=== PATIENT | female | born 1965 | race Caucasian/White ===

== ENCOUNTER 2020-02-04 19:24 | Inpatient (IN) | payer OTHER ==
[2020-02-04] MEDS ORDERED: LORazepam 2 MG/ML INJ IV PRN (19:58)
[2020-02-04] MEDS ORDERED: THIAMINE 100 MG/ML 2 ML VIAL IM STA (19:58)
[2020-02-04] MEDS ORDERED: SODIUM CHLORIDE 0.9% 1,000 ML IV ONE (19:58)
[2020-02-04] MEDS: SODIUM CHLORIDE 0.9% 1,000 ML IV SCH (20:22)
--- NOTE | 2020-02-04 20:25 | ED ---
Alcohol HPI - General Chief Complaint: Alcohol Stated Complaint: ETOH Time Seen by Provider: 02/04/20 19:34 Source: patient, family Mode of arrival: wheelchair Limitations: no limitations - History of Present Illness Initial Comments: Patient is a 55 female past medical history of medical abuse presents emergency Department intoxicated with thoughts of harming herself. Her mother is at bedside. Patient states that she drinks heavily daily. Recently she has had significant depression with thoughts of jumping off a bridge. Patient reports to chronic depression and previous a has harmed herself by cutting her upper extremities. States she was hospitalized however this is a significant period of time ago. Patient is belligerent and rested with staff. I do attempt to obtain a history from the patient however she will only answer certain ques tions. She denies homicidal ideations. No psychoses. Patient reports that she has previously tried to detox from alcohol on her own and alcohol withdrawal seizures. She denies any other drug use. The remainder of the HPI is limited because the patient's current condition - Related Data Home Medications Medication Instructions Recorded Confirmed Multivitamins, Thera [Multivitamin 1 tab PO DAILY 02/05/20 02/05/20 (formulary)] Previous Rx's Medication Instructions Recorded Escitalopram [Lexapro] 10 mg PO DAILY #30 tab 02/06/20 Famotidine [Pepcid] 20 mg PO BID #30 tab 02/06/20 Naltrexone HCl [Revia] 50 mg PO DAILY #30 tab 02/06/20 Thiamine [Vitamin B-1] 100 mg PO BID-W/MEALS #30 tab 02/06/20 chlordiazePOXIDE HCl [Librium] 25 mg PO TID #12 cap 02/06/20 traZODone HCL [Desyrel] 25 mg PO HS #30 tab 02/06/20 Allergies Allergy/AdvReac Type Severity Reaction Status Date / Time amoxicillin Allergy Unknown Verified 02/05/20 12:44 bee venom protein (honey bee) Allergy Unknown Verified 02/05/20 12:44 Sulfa (Sulfonamide Allergy Unknown Verified 02/05/20 12:44 Antibiotics) Review of Systems ROS Statement: Those systems with pertinent positive or pertinent negative responses have been documented in the HPI. ROS Other: All systems not noted in ROS Statement are negative. Past Medical History Past Medical History: No Reported History History of Any Multi-Drug Resistant Organisms: None Reported Past Surgical History: No Surgical Hx Reported Past Psychological History: No Psychological Hx Reported Smoking Status: Never smoker Past Alcohol Use History: Abuse Past Drug Use History: None Reported - Past Family History Mother Family Medical History: No Reported History General Exam Limitations: no limitations General appearance: alert, appears intoxicated Head exam: Present: atraumatic, normocephalic, normal inspection Eye exam: Present: normal appearance, PERRL, EOMI. Absent: scleral icterus, conjunctival injection, periorbital swelling ENT exam: Present: normal exam, mucous membranes moist Neck exam: Present: normal inspection. Absent: tenderness, meningismus, lympha denopathy Respiratory exam: Present: normal lung sounds bilaterally. Absent: respiratory distress, wheezes, rales, rhonchi, stridor Cardiovascular Exam: Present: regular rate, normal rhythm, normal heart sounds. Absent: systolic murmur, diastolic murmur, rubs, gallop, clicks GI/Abdominal exam: Present: soft, normal bowel sounds. Absent: distended, tenderness, guarding, rebound, rigid Neurological exam: Present: altered Psychiatric exam: Present: agitated, manic Skin exam: Present: warm, dry, intact, normal color. Absent: rash Course Vital Signs 02/04/20 02/04/20 19:26 21:42 Temperature 98.3 F Pulse Rate 89 80 Respiratory 16 16 Rate Blood Pressure 144/99 105/68 O2 Sat by Pulse 94 L 93 L Oximetry Medical Decision Making - Medical Decision Making Upon arrival patient is placed in room 13. A thorough history and physical exam was performed. Patient is significantly intoxicated. She is crying in the room. A BAT is performed on the patient and is 0.365. This elevated level we did obtain lab studies which demonstrated a serum alcohol level of 484. Because of this I did recommend hospital admission with psychiatry consult. I discussed the case with Rosalia from [facility] agree to hospital admission. Patient is currently awaiting a bed on the floor - Lab Data Result diagrams: 02/05/20 07:13 02/06/20 07:02 Lab Results 02/04/20 02/04/20 02/04/20 Range/Units 19:59 20:20 20:20 WBC 4.4 (3.8-10.6) k/uL RBC 4.46 (3.80-5.40) m/uL Hgb 14.7 (11.4-16.0) gm/dL Hct 45.6 (34.0-46.0) % MCV 102.3 H (80.0-100.0) fL MCH 33.0 (25.0-35.0) pg MCHC 32.3 (31.0-37.0) g/dL RDW 14.4 (11.5-15.5) % Plt Count 223 (150-450) k/uL Neutrophils % 43 % Lymphocytes % 45 % Monocytes % 5 % Eosinophils % 2 % Basophils % 1 % Neutrophils # 1.9 (1.3-7.7) k/uL Lymphocytes # 2.0 (1.0-4.8) k/uL Monocytes # 0.2 (0-1.0) k/uL Eosinophils # 0.1 (0-0.7) k/uL Basophils # 0.1 (0-0.2) k/uL Macrocytosis Slight Sodium 145 (137-145) mmol/L Potassium 4.1 (3.5-5.1) mmol/L Chloride 106 (98-107) mmol/L Carbon Dioxide 24 (22-30) mmol/L Anion Gap 15 mmol/L BUN 16 (7-17) mg/dL Creatinine 0.63 (0.52-1.04) mg/dL Est GFR (CKD-EPI)AfAm >90 (>60 ml/min/1.73 sqM) Est GFR (CKD-EPI)NonAf >90 (>60 ml/min/1.73 sqM) Glucose 97 (74-99) mg/dL Calcium 9.2 (8.4-10.2) mg/dL Total Bilirubin 0.6 (0.2-1.3) mg/dL AST 108 H (14-36) U/L ALT 84 H (4-34) U/L Alkaline Phosphatase 147 H (38-126) U/L Total Protein 8.3 H (6.3-8.2) g/dL Albumin 5.2 H (3.5-5.0) g/dL Urine Color Yellow Urine Appearance Clear (Clear) Urine pH 6.0 (5.0-8.0) Ur Specific Daisy 1.014 (1.001-1.035) Urine Protein 1+ H (Negative) Urine Glucose (UA) Negative (Negative) Urine Ketones Negative (Negative) Urine Blood Trace H (Negative) Urine Nitrite Negative (Negative) Urine Bilirubin Negative (Negative) Urine Urobilinogen <2.0 (<2.0) mg/dL Ur Leukocyte Esterase Negative (Negative) Urine RBC 5 (0-5) /hpf Urine WBC 1 (0-5) /hpf Ur Squamous Epith Cells 4 (0-4) /hpf Urine Mucus Rare H (None) /hpf Urine Opiates Screen Not Detected (NotDetected) Ur Oxycodone Screen Not Detected (NotDetected) Urine Methadone Screen Not Detected (NotDetected) Ur Propoxyphene Screen Not Detected (NotDetected) Ur Barbiturates Screen Not Detected (NotDetected) U Tricyclic Antidepress Not Detected (NotDetected) Ur Phencyclidine Scrn Not Detected (NotDetected) Ur Amphetamines Screen Not Detected (NotDetected) U Methamphetamines Scrn Not Detected (NotDetected) U Benzodiazepines Scrn Not Detected (NotDetected) Urine Cocaine Screen Not Detected (NotDetected) U Marijuana (THC) Screen Not Detected (NotDetected) Serum Alcohol 484 H* mg/dL 02/05/20 02/05/20 02/06/20 Range/Units 07:13 07:13 07:02 WBC 3.0 L (3.8-10.6) k/uL RBC 3.51 L (3.80-5.40) m/uL Hgb 11.8 (11.4-16.0) gm/dL Hct 36.4 (34.0-46.0) % MCV 103.8 H (80.0-100.0) fL MCH 33.6 (25.0-35.0) pg MCHC 32.3 (31.0-37.0) g/dL RDW 14.3 (11.5-15.5) % Plt Count 153 (150-450) k/uL Neutrophils % 42 % Lymphocytes % 45 % Monocytes % 6 % Eosinophils % 4 % Basophils % 1 % Neutrophils # 1.3 (1.3-7.7) k/uL Lymphocytes # 1.3 (1.0-4.8) k/uL Monocytes # 0.2 (0-1.0) k/uL Eosinophils # 0.1 (0-0.7) k/uL Basophils # 0.0 (0-0.2) k/uL Macrocytosis Slight Sodium 137 133 L (137-145) mmol/L Potassium 3.8 3.9 (3.5-5.1) mmol/L Chloride 107 105 (98-107) mmol/L Carbon Dioxide 22 23 (22-30) mmol/L Anion Gap 8 5 mmol/L BUN 14 10 (7-17) mg/dL Creatinine 0.58 0.52 (0.52-1.04) mg/dL Est GFR (CKD-EPI)AfAm >90 >90 (>60 ml/min/1.73 sqM) Est GFR (CKD-EPI)NonAf >90 >90 (>60 ml/min/1.73 sqM) Glucose 77 99 (74-99) mg/dL Calcium 7.7 L 7.9 L (8.4-10.2) mg/dL Total Bilirubin 1.4 H (0.2-1.3) mg/dL AST 52 H (14-36) U/L ALT 47 H (4-34) U/L Alkaline Phosphatase 78 (38-126) U/L Total Protein 6.0 L (6.3-8.2) g/dL Albumin 3.6 (3.5-5.0) g/dL Urine Color Urine Appearance (Clear) Urine pH (5.0-8.0) Ur Specific Daisy (1.001-1.035) Urine Protein (Negative) Urine Glucose (UA) (Negative) Urine Ketones (Negative) Urine Blood (Negative) Urine Nitrite (Negative) Urine Bilirubin (Negative) Urine Urobilinogen (<2.0) mg/dL Ur Leukocyte Esterase (Negative) Urine RBC (0-5) /hpf Urine WBC (0-5) /hpf Ur Squamous Epith Cells (0-4) /hpf Urine Mucus (None) /hpf Urine Opiates Screen (NotDetected) Ur Oxycodone Screen (NotDetected) Urine Methadone Screen (NotDetected) Ur Propoxyphene Screen (NotDetected) Ur Barbiturates Screen (NotDetected) U Tricyclic Antidepress (NotDetected) Ur Phencyclidine Scrn (NotDetected) Ur Amphetamines Screen (NotDetected) U Methamphetamines Scrn (NotDetected) U Benzodiazepines Scrn (NotDetected) Urine Cocaine Screen (NotDetected) U Marijuana (THC) Screen (NotDetected) Serum Alcohol mg/dL Disposition Clinical Impression: Alcoholic intoxication, Depression Disposition: ADMITTED IP TO THIS [facility] Condition: Stable Is patient prescribed a controlled substance at d/c from ED?: No Decision to Admit Reason: Admit from EC Decision Date: 02/04/20 Decision Time: 21:11
[2020-02-04 20:33] LABS: Basophils # (A) 0.1 k/uL (0-0.2); Basophils % (A) 1 %; Eosinophils # (A) 0.1 k/uL (0-0.7); Eosinophils % (A) 2 %; HCT 45.6 % (34.0-46.0); HGB 14.7 gm/dL (11.4-16.0); Lymphocytes % (A) 45 %; MCHC 32.3 g/dL (31.0-37.0); MCV 102.3 fL (80.0-100.0); Macrocytosis Slight; Mean Platelet Volume 7.6; Monocytes # (A) 0.2 k/uL (0-1.0); Monocytes % (A) 5 %; Neutrophils # (A) 1.9 k/uL (1.3-7.7); Neutrophils % (A) 43 %; Platelet Count 223 k/uL (150-450); RBC 4.46 m/uL (3.80-5.40); RDW 14.4 % (11.5-15.5); WBC 4.4 k/uL (3.8-10.6)
[2020-02-04] MEDS: LORazepam 2 MG/ML INJ IV PRN ×2 (20:34→20:35)
[2020-02-04] MEDS: THIAMINE 100 MG TAB PO SCH (20:37)
[2020-02-04 20:44] LABS: ALT 84 U/L (4-34); AST 108 U/L (14-36); African American GFR (CKD) >90 (>60 ml/min/1.73 sqM); Albumin 5.2 g/dL (3.5-5.0); Alkaline Phosphatase 147 U/L (38-126); Anion Gap 15 mmol/L; Blood Urea Nitrogen 16 mg/dL (7-17); Calcium 9.2 mg/dL (8.4-10.2); Carbon Dioxide 24 mmol/L (22-30); Chloride 106 mmol/L (98-107); Glucose 97 mg/dL (74-99); Non-African American GFR(CKD) >90 (>60 ml/min/1.73 sqM); Potassium 4.1 mmol/L (3.5-5.1); Sodium 145 mmol/L (137-145); Total Bilirubin 0.6 mg/dL (0.2-1.3); Total Protein 8.3 g/dL (6.3-8.2)
[2020-02-04 20:55] LABS: Alcohol 484 mg/dL
[2020-02-04 20:59] LABS: Amphetamine Screen,Urine Not Detected (NotDetected); Barbiturate Screen,Urine Not Detected (NotDetected); Benzodiazepines Screen,Urine Not Detected (NotDetected); Cocaine Screen,Urine Not Detected (NotDetected); Methadone Screen, Urine Not Detected (NotDetected); Opiate Screen,Urine Not Detected (NotDetected); Oxycodone Screen, Urine Not Detected (NotDetected); Phencyclidine Screen,Urine Not Detected (NotDetected); Tricyclic Antidepressant,Urine Not Detected (NotDetected); Urn Cannabinoid Scrn Not Detected (NotDetected)
[2020-02-04] MEDS ORDERED: ONDANSETRON 4 MG/2 ML VIAL IVP PRN (21:11)
[2020-02-04] MEDS ORDERED: NALOXONE 0.4 MG/ML 1 ML VIAL IV PRN (21:11)
[2020-02-04 22:03] LABS: Appearance,Urine Clear (Clear); Bilirubin,Urine Negative (Negative); Blood,Urine Trace (Negative); Color,Urine Yellow; Glucose,Urine (UA) Negative (Negative); Ketones,Urine Negative (Negative); Leukocyte Esterase,Urine Negative (Negative); Mucus,Urine Rare /hpf; Nitrite,Urine Negative (Negative); Protein,Urine 1+ (Negative); RBC,Urine 5 /hpf (0-5); Specific Gravity,Urine 1.014 (1.001-1.035); Squamous Epithelial Cell,Urine 4 /hpf (0-4); Urobilinogen,Urine <2.0 mg/dL (<2.0); WBC,Urine 1 /hpf (0-5)
[2020-02-05] MEDS: LORazepam 2 MG/ML INJ IV PRN ×4 (04:01→14:18)
[2020-02-05 08:08] LABS: Basophils % (A) 1 %; Eosinophils # (A) 0.1 k/uL (0-0.7); Eosinophils % (A) 4 %; HCT 36.4 % (34.0-46.0); HGB 11.8 gm/dL (11.4-16.0); Lymphocytes # (A) 1.3 k/uL (1.0-4.8); Lymphocytes % (A) 45 %; MCH 33.6 pg (25.0-35.0); MCHC 32.3 g/dL (31.0-37.0); MCV 103.8 fL (80.0-100.0); Macrocytosis Slight; Mean Platelet Volume 7.7; Monocytes # (A) 0.2 k/uL (0-1.0); Monocytes % (A) 6 %; Neutrophils # (A) 1.3 k/uL (1.3-7.7); Neutrophils % (A) 42 %; Platelet Count 153 k/uL (150-450); RBC 3.51 m/uL (3.80-5.40); RDW 14.3 % (11.5-15.5)
[2020-02-05 08:17] LABS: African American GFR (CKD) >90 (>60 ml/min/1.73 sqM); Anion Gap 8 mmol/L; Blood Urea Nitrogen 14 mg/dL (7-17); Calcium 7.7 mg/dL (8.4-10.2); Carbon Dioxide 22 mmol/L (22-30); Chloride 107 mmol/L (98-107); Glucose 77 mg/dL (74-99); Non-African American GFR(CKD) >90 (>60 ml/min/1.73 sqM); Potassium 3.8 mmol/L (3.5-5.1); Sodium 137 mmol/L (137-145)
[2020-02-05] MEDS: THIAMINE 100 MG TAB PO SCH ×2 (09:46→17:33)
[2020-02-05] MEDS: SODIUM CHLORIDE 0.9% 1,000 ML IV SCH ×2 (11:59→14:09)
--- NOTE | 2020-02-05 13:00 | P.CN ---
Psychiatric Consult - . Consult date: 02/05/20 Consult:: 02/05/20 12:52 IDENTIFYING DATA: This patient is a 55-year-old female with a history of alcohol use disorder and depression who currently lives with her mother in a trailer is has 5 kids and collects Social Security. HISTORY OF PRESENT ILLNESS: The patient presented to the hospital yesterday and was intoxicated in the ER and reportedly was having suicidal thoughts. Patient was brought in by her mother. Patient is reported to be drinking alcohol daily and it was reported that she mentioned thoughts of jumping "off a bridge" and has been suffering from chronic depression. Patient was also uncooperative and belligerent in the ER according to report. Patient was transferred to medicine for monitoring and alcohol withdrawal as she has a history of withdrawal seizures. Patient's blood alcohol level was 484 and AST/ALT were elevated. Patient's UDS was negative. Patient had tachycardia and was started on CIWA with Ativan when necessary. Patient has been receiving Ativan's for her alcohol withdrawal. There is taking care patient denied any complaints. The patient is at the bedside with the sitter and appeared to have poor hygiene and grooming. She appeared to have a depressed and anxious affect and was trembling during the interview. She states that she "drank too much". She claims that she has been dealing with multiple stressors in her life including her being in the hospital now and her stepfather and [place]. She also claims that her mother is "losing her mind" and forgetting things. She states that she is not handling things well and has poor coping skills. Aims that she has been drinking up to a pint of vodka per day since August and states that this is more than what she regularly drinks. She claims that she does have anxiety and has been shaking and sweating. She was guarded about her suicidal thoughts and states that "I do not know what I said when I was drunk" and claimed that her mood is depressed at this time. She admits to poor sleep approximately 3 hours a night. At this time patient denies any suicidal or homical ideations, intent or plan. Patient denies any auditory, visual hallucinations and denies any paranoia or delusions. Patients admits to using alcohol daily and denies any other recreational drug use. PAST PSYCHIATRIC HISTORY: Patient has a a history of alcohol use and depression. She states that she is previously on Lexapro, Antabuse and naltrexone and trazodone in the past Patient denies any previous psychiatric hospitalizations. Patient denies any psychiatric outpatient follow-up. She states that she had 1 suicide attempt in 2004 where she filled her bathtub with water and attempted to drown herself in it. PAST MEDICAL HISTORY: Cirrhosis, pancreatitis. ALLERGIES: as per EMR. CHEMICAL DEPENDENCY HISTORY: as per HPI. FAMILY PSYCHIATRIC/SUBSTANCE USE HISTORY: She states that multiple family members have mental illness in her family and states that her uncles committed suicide and her cousin shot himself to . SOCIAL HISTORY: Patient was born and raised in [place] and grew up in [place]. She states that she completed 1 year of college in criminal law. She states that she went to retirement for 2 DUIs in 2010 in 2014. She claims that she lives with her mother in a trailer is and has 5 grown kids and collects Social Security. MENTAL STATUS EXAM: General Appearance: Patient appears to be stated age is alert, pleasant, and cooperative however is evasive at times/guarded. Patient appears to have poor hygiene and grooming wearing hospital gown with poor eye contact. Behavior: Patient is calmly lying in bed without any agitated behavior. Evasive at times. Speech: Patient's speech is fluent and nonpressured. Mood/Affect: Patient reports their mood is "depressed and anxious", affect is congruent Suicidality/Homicidality: Patient denies having any suicidal or homicidal ideation intent or plan. Perceptions: Patient denies any visual hallucinations and denies any auditory hallucinations Though content/process: There is no evidence of any delusional thought content and thought process is linear and goal-directed. [place], depressive content. Memory and concentration: AOX3, grossly intact for the purposes of this session. Can spell "WORLD" backwards Judgment and insight: Limited IMPRESSIONS: Depressive disorder unspecified, rule out secondary to alcohol use versus major depressive disorder Alcohol use disorder, moderate-severe, currently in withdrawal PLAN: -At this time we'll continue to follow along to see if patient will meet criteria for inpatient psychiatric hospitalization. -Would recommend the following medication changes/additions: Patient is agreeable to start Lexapro 10 mg daily starting tomorrow for mood/anxiety, we'll start trazodone 25 mg daily at bedtime for mood/insomnia, we'll also start patient on 25 mg 3 times a day of Librium for alcohol withdrawal with plan to titrate off. -Continue 1:1 sitter for safety -Continue with monitoring vitals and CIWA protocol with Ativan when necessary for alcohol withdrawal. -Cannot leave AMA at this time. Patient will need a petition and certification if attempting to leave AMA. -Will continue to follow along -Please contact with any questions. 02/05/20 12:53
[2020-02-05] MEDS: chlordiazePOXIDE 25 MG CAP PO SCH ×2 (14:11→21:13)
--- NOTE | 2020-02-05 16:50 | P.HPIM ---
History of Present Illness Patient is a 52-year-old female was brought in because of suicidal thoughts and ideations. Patient the did drink about one fifth the of hard liquor yesterday patient usually drinks a pint of hard liquor every day. Patient is being treated for withdrawals patient is on Ativan as well as Librium for withdrawals. Patient apparently complained of suicidal thoughts yesterday to the ER physician patient was evaluated by psychiatric and they're recommending inpatient psychiatric hospitalization and the patient cannot leave AMA. And patient need to be petitioned. Patient denied any fever chills nausea vomiting abdominal pain dysuria. Patient had elevated liver enzymes secondary to alcohol use. Patient is willing to quit alcohol Review of Systems REVIEW OF SYSTEMS: CONSTITUTIONAL: No fever, no malaise, no fatigue. HEENT: No recent visual problems or hearing problems. Denied any sore throat. CARDIOVASCULAR: No chest pain, orthopnea, PND, no palpitations, no syncope. PULMONARY: No shortness of breath, no cough, no hemoptysis. GASTROINTESTINAL: No diarrhea, no nausea, no vomiting, no abdominal pain. NEUROLOGICAL: No headaches, no weakness, no numbness. HEMATOLOGICAL: Denies any bleeding or petechiae. GENITOURINARY: Denies any burning micturition, frequency, or urgency. MUSCULOSKELETAL/RHEUMATOLOGICAL: Denies any joint pain, swelling, or any muscle pain. ENDOCRINE: Denies any polyuria or polydipsia. The rest of the 14-point review of systems is negative. Past Medical History Past Medical History: No Reported History History of Any Multi-Drug Resistant Organisms: None Reported Past Surgical History: No Surgical Hx Reported Past Psychological History: No Psychological Hx Reported Smoking Status: Never smoker Past Alcohol Use History: Abuse Past Drug Use History: None Reported - Past Family History Mother Family Medical History: No Reported History Medications and Allergies Home Medications Medication Instructions Recorded Confirmed Type Multivitamins, Thera [Multivitamin 1 tab PO DAILY 02/05/20 02/05/20 History (formulary)] Allergies Allergy/AdvReac Type Severity Reaction Status Date / Time amoxicillin Allergy Unknown Verified 02/05/20 12:44 bee venom protein (honey bee) Allergy Unknown Verified 02/05/20 12:44 Sulfa (Sulfonamide Allergy Unknown Verified 02/05/20 12:44 Antibiotics) Physical Exam Vitals: Vital Signs Temp Pulse Pulse Resp BP BP Pulse Ox 02/05/20 11:30 97.9 F 104 H 12 143/88 94 L 02/05/20 04:36 97.9 F 82 12 125/83 93 L 02/04/20 22:15 97.5 F L 82 16 112/75 96 02/04/20 21:42 80 16 105/68 93 L 02/04/20 19:26 98.3 F 89 16 144/99 94 L Intake and Output 02/05/20 02/05/20 02/05/20 06:59 14:59 22:59 Intake Total 1280 Balance 1280 Intake: Intake, IV Titration 1040 Amount Sodium Chloride 0.9% 1, 1040 000 ml @ 130 mls/hr IV . [id number] [facility] Rx#:[id number] Oral 240 Other: Voiding Method Toilet Toilet # Voids 1 PHYSICAL EXAMINATION: GENERAL: The patient is alert and oriented x3, not in any acute distress. Well developed, well nourished. HEENT: Pupils are round and equally reacting to light. EOMI. No scleral icterus. No conjunctival pallor. Normocephalic, atraumatic. No pharyngeal erythema. No thyromegaly. CARDIOVASCULAR: S1 and S2 present. No murmurs, rubs, or gallops. PULMONARY: Chest is clear to auscultation, no wheezing or crackles. ABDOMEN: Soft, nontender, nondistended, normoactive bowel sounds. No palpable organomegaly. MUSCULOSKELETAL: No joint swelling or deformity. EXTREMITIES: No cyanosis, clubbing, or pedal edema. NEUROLOGICAL: Gross neurological examination did not reveal any focal deficits. SKIN: No rashes. Results CBC & Chem 7: 02/05/20 07:13 02/05/20 07:13 Labs: Abnormal Lab Results - Last 24 Hours (Table) 02/04/20 02/04/20 02/04/20 Range/Units 19:59 20:20 20:20 WBC (3.8-10.6) k/uL RBC (3.80-5.40) m/uL MCV 102.3 H (80.0-100.0) fL Calcium (8.4-10.2) mg/dL AST 108 H (14-36) U/L ALT 84 H (4-34) U/L Alkaline Phosphatase 147 H (38-126) U/L Total Protein 8.3 H (6.3-8.2) g/dL Albumin 5.2 H (3.5-5.0) g/dL Urine Protein 1+ H (Negative) Urine Blood Trace H (Negative) Urine Mucus Rare H (None) /hpf Serum Alcohol 484 H* mg/dL 02/05/20 02/05/20 Range/Units 07:13 07:13 WBC 3.0 L (3.8-10.6) k/uL RBC 3.51 L (3.80-5.40) m/uL MCV 103.8 H (80.0-100.0) fL Calcium 7.7 L (8.4-10.2) mg/dL AST (14-36) U/L ALT (4-34) U/L Alkaline Phosphatase (38-126) U/L Total Protein (6.3-8.2) g/dL Albumin (3.5-5.0) g/dL Urine Protein (Negative) Urine Blood (Negative) Urine Mucus (None) /hpf Serum Alcohol mg/dL Thrombosis Risk Factor Assmnt - Choose All That Apply Any of the Below Risk Factors Present?: Yes Each Factor Represents 1 point: Age 41-60 years Thrombosis Risk Factor Assessment Total Risk Factor Score: 1 Thrombosis Risk Factor Assessment Level: Low Risk Assessment and Plan Plan: -Major depression and suicidal ideation: Patient will be discharged to psychiatric floor once her withdrawals or buttock -Alcohol withdrawal patient is on Ativan CIWA protocol protocol patient has a sitter in place. Patient is also on long-acting medication, Librium. -Acute alcoholic hepatitis: Neck started to improve with the cessation of alcohol -Alcohol abuse patient is on thiamine supplementation. -Due to prophylaxis with Lovenox and GI prophylaxis with Pepcid
[2020-02-05] MEDS ORDERED: traZODone HCL 50 MG TAB PO SCH (21:00)
[2020-02-05] MEDS: FAMOTIDINE 20 MG TAB PO SCH (21:13)
[2020-02-05 23:42] VITALS: RESP 16
[2020-02-06] MEDS: SODIUM CHLORIDE 0.9% 1,000 ML IV SCH ×3 (02:45→12:32)
[2020-02-06 08:05] LABS: ALT 47 U/L (4-34); AST 52 U/L (14-36); African American GFR (CKD) >90 (>60 ml/min/1.73 sqM); Albumin 3.6 g/dL (3.5-5.0); Alkaline Phosphatase 78 U/L (38-126); Anion Gap 5 mmol/L; Blood Urea Nitrogen 10 mg/dL (7-17); Calcium 7.9 mg/dL (8.4-10.2); Carbon Dioxide 23 mmol/L (22-30); Chloride 105 mmol/L (98-107); Glucose 99 mg/dL (74-99); Non-African American GFR(CKD) >90 (>60 ml/min/1.73 sqM); Potassium 3.9 mmol/L (3.5-5.1); Sodium 133 mmol/L (137-145); Total Bilirubin 1.4 mg/dL (0.2-1.3)
[2020-02-06] MEDS ORDERED: ENOXAPARIN 40 MG/0.4 ML SYRINGE SQ SCH (09:00)
[2020-02-06] MEDS ORDERED: ESCITALOPRAM 10 MG TAB PO SCH (09:00)
[2020-02-06] MEDS: THIAMINE 100 MG TAB PO SCH (09:35)
[2020-02-06] MEDS: chlordiazePOXIDE 25 MG CAP PO SCH ×2 (09:36→17:06)
[2020-02-06] MEDS: FAMOTIDINE 20 MG TAB PO SCH (09:36)
[2020-02-06 11:49] VITALS: BP 151/94; PULSE 86; TEMP 98
--- NOTE | 2020-02-06 13:28 | P.PN ---
Progress Note - Text Progress Note Date: 02/06/20 Interval History: Patient was seen today for psychiatric follow-up with regards to her depression and alcohol use. Patient claims that she slept better last night and states that her mood is more improved today. She states that she is tolerating medications well and feels less anxious. She states that she was able to sleep throughout the night. She claims that she is supposed to be helping her mother at home. She claims that she also wants to visit her who is also in the hospital. She states that she has a lot to live for including her grandchildren and claims that she is not having any suicidal thoughts today. She states that she is eating her meals well. At this time patient denies any suicidal or homical ideations, intent or plan. Patient denies any auditory, visual hallucinations and denies any paranoia or delusions. Patient denies any side effects from the medications and has been compliant with meds. she spoke about her alcohol use and her desire to quit drinking. She was open to start taking naltrexone prior to discharge. She also states that she will be going back to the 12 step program for her alcohol use. Mental Status Exam: General Appearance: Patient appears to be stated age is alert, more directable today, and cooperative. Patient appears to have improving hygiene and grooming wearing hospital gown with improving eye contact. Behavior: Patient is calmly lying in bed without any agitated behavior. more cooperative today Speech: Patient's speech is fluent and nonpressured. Mood/Affect: Patient reports their mood is "depressed and anxious", affect is congruent Suicidality/Homicidality: Patient denies having any suicidal or homicidal ideat ion intent or plan. Perceptions: Patient denies any visual hallucinations and denies any auditory hallucinations Though content/process: There is no evidence of any delusional thought content and thought process is linear and goal-directed. more future oriented today. Memory and concentration: AOX3, grossly intact for the purposes of this session Judgment and insight: improving mildly Assessment Depressive disorder unspecified, rule out secondary to alcohol use versus major depressive disorder Alcohol use disorder, moderate-severe, currently in withdrawal Plan: -At this time patient does NOT meet criteria for inpatient psychiatric hospitalization. -Would recommend the following medication changes/additions: continue with Lexapro 10 mg daily for mood/anxiety, continue with trazodone 25 mg daily at bedtime for mood/insomnia, continue with titration off of Librium for alcohol withdrawal. -sitter can be discontinued at this time as patient is not suicidal. -Continue with monitoring vitals and CIWA protocol with Ativan when necessary for alcohol withdrawal. -Will start naltrexone 50 mg by mouth daily for alcohol cravings. -Patient will be going to her 12-step program that she was previously enrolled in for her alcohol use. She refused inpatient rehab. -psychiatry will sign off at this point, Please contact with any questions.
[2020-02-06] MEDS ORDERED: NALTREXONE HCL 50 MG TAB PO SCH (13:30)
--- NOTE | 2020-02-06 16:20 | P.DS ---
Providers Date of admission: 02/06/20 11:03 Attending physician: Vianca Barahona Consults: 02/04/20 21:12 Consult Physician Routine Consulting Provider: Steve Markham Consult Reason/Comments: acute depression Do you want consulting provider notified?: Yes 02/05/20 03:52 Consult Physician Routine Consulting Provider: Steve Markham Consult Reason/Comments: Depression Do you want consulting provider notified?: Already Contacted Primary care physician: Stated None Hospital Course: 52-year-old female was brought in because of suicidal thoughts and ideations. Patient the did drink about one fifth the of hard liquor yesterday patient usually drinks a pint of hard liquor every day. Patient is being treated for withdrawals patient is on Ativan as well as Librium for withdrawals. Patient apparently complained of suicidal thoughts yesterday to the ER physician patient was evaluated by psychiatric and they're recommending inpatient psychiatric hospitalization and the patient cannot leave AMA. And patient need to be petitioned. Patient denied any fever chills nausea vomiting abdominal pain dysuria. Patient had elevated liver enzymes secondary to alcohol use. Patient is willing to quit alcohol 02/06/2020 Patient is still having some withdrawals but the not significant because of which we will discharge the patient on weaning dose of Librium. Patient is otherwise clinically doing well patient is also being discharged on naltrexone thiamine vitamin supplementation and antidepressants. PHYSICAL EXAMINATION: GENERAL: The patient is alert and oriented x3, not in any acute distress. Well developed, well nourished. Mild tremors HEENT: Pupils are round and equally reacting to light. EOMI. No scleral icterus. No conjunctival pallor. Normocephalic, atraumatic. No pharyngeal erythema. No thyromegaly. CARDIOVASCULAR: S1 and S2 present. No murmurs, rubs, or gallops. PULMONARY: Chest is clear to auscultation, no wheezing or crackles. ABDOMEN: Soft, nontender, nondistended, normoactive bowel sounds. No palpable organomegaly. MUSCULOSKELETAL: No joint swelling or deformity. EXTREMITIES: No cyanosis, clubbing, or pedal edema. NEUROLOGICAL: Gross neurological examination did not reveal any focal deficits. SKIN: No rashes. Assessment and Plan Plan: -Major depression and suicidal ideation patient is doing much better today patient was evaluated by psychiatric and they cleared for discharge -Alcohol withdrawal patient doesn't have any significant withdrawals today will be discharged today on Librium -Acute alcoholic hepatitis: Improved liver enzymes -Alcohol abuse patient is on thiamine supplementation. Patient Condition at Discharge: Stable Plan - Discharge Summary New Discharge Prescriptions: New Escitalopram [Lexapro] 10 mg PO DAILY #30 tab chlordiazePOXIDE HCl [Librium] 25 mg PO TID #12 cap traZODone HCL [Desyrel] 25 mg PO HS #30 tab Famotidine [Pepcid] 20 mg PO BID #30 tab Naltrexone HCl [Revia] 50 mg PO DAILY #30 tab Thiamine [Vitamin B-1] 100 mg PO BID-W/MEALS #30 tab No Action Multivitamins, Thera [Multivitamin (formulary)] 1 tab PO DAILY Discharge Medication List Multivitamins, Thera [Multivitamin (formulary)] 1 tab PO DAILY 02/05/20 [History] Escitalopram [Lexapro] 10 mg PO DAILY #30 tab 02/06/20 [Rx] Famotidine [Pepcid] 20 mg PO BID #30 tab 02/06/20 [Rx] Naltrexone HCl [Revia] 50 mg PO DAILY #30 tab 02/06/20 [Rx] Thiamine [Vitamin B-1] 100 mg PO BID-W/MEALS #30 tab 02/06/20 [Rx] chlordiazePOXIDE HCl [Librium] 25 mg PO TID #12 cap 02/06/20 [Rx] traZODone HCL [Desyrel] 25 mg PO HS #30 tab 02/06/20 [Rx] Follow up Appointment(s)/Referral(s): None,Stated [Primary Care Provider] - 1-2 days Majo Vazquez MD [STAFF PHYSICIAN] - 1 Week (pt to call Friday to establish a primary care provider) Bk Rodriguez DO [Doctor of Osteopathic Medicine] - 1 Week (Patient may call this physician Friday to establish PCP and follow up as well. ) Patient Instructions/Handouts: Chlordiazepoxide/Clidinium (By mouth), Fam otidine (By mouth), Trazodone (By mouth), Thiamine (By mouth), Naltrexone (By mouth), Escitalopram (By mouth), Abuse of Alcohol (DC), Alcohol Withdrawal (DC) Activity/Diet/Wound Care/Special Instructions: Activity as tolerated Diet as tolerated Refrain from drinking alcohol Call a physician to establish a care provider and to follow up Discharge Disposition: HOME SELF-CARE
== END 2020-02-06 17:08 | disposition home or self-care (01) | DRG 897 ==
LOC: EC 19:24 → 5NMEDONC 21:13 → OBSVTOIN 02-06 11:03
PROVIDERS: ADMIT Hospitalist; ATTEND Hospitalist
DX: F10.239 Alcohol dependence with withdrawal, unspecified (principal); R45.851 Suicidal ideations; F10.229 Alcohol dependence with intoxication, unspecified; Y90.8 Blood alcohol level of 240 mg/100 ml or more; F32.9 Major depressive disorder, single episode, unspecified; K70.10 Alcoholic hepatitis without ascites; Z65.3 Problems related to other legal circumstances; Z56.0 Unemployment, unspecified; F41.9 Anxiety disorder, unspecified; Z81.8 Family history of other mental and behavioral disorders; Z91.5 Personal history of self-harm; Z88.0 Allergy status to penicillin; Z88.2 Allergy status to sulfonamides; Z91.030 Bee allergy status
CPT/HCPCS: 36415; 80048; 80053; 80306; 80320; 81001; 82075; 85025; 96361; 96372; 96374; 99285

== ENCOUNTER 2020-09-25 13:13 | Inpatient (IN) | payer OTHER ==
[2020-09-25] MEDS ORDERED: SODIUM CHLORIDE 0.9% 1,000 ML IV STA (13:33)
[2020-09-25] MEDS ORDERED: LORazepam 2 MG/ML INJ IV STA ×2 (13:33→15:32)
[2020-09-25] MEDS ORDERED: ONDANSETRON 4 MG/2 ML VIAL IVP STA (13:35)
--- NOTE | 2020-09-25 13:36 | ED ---
General Adult HPI - General Chief complaint: Seizure Stated complaint: seizure Time Seen by Provider: 09/25/20 13:21 Source: patient, EMS, RN notes reviewed Mode of arrival: EMS Limitations: no limitations - History of Present Illness Initial comments: Patient is a pleasant 55-year-old female presenting to the emergency Department with reported seizure. Patient does not recall the episode. Patient states she was confused however no longer feels confused. No history of seizures. Patient states she does drink around a pint of the of alcohol, last drink was a day or 2 ago. Patient does feel shaky. Patient denies any injury. Does complain of na usea. - Related Data Home Medications Medication Instructions Recorded Confirmed Multivitamins, Thera [Multivitamin 1 tab PO DAILY 02/05/20 09/25/20 (formulary)] Allergies Allergy/AdvReac Type Severity Reaction Status Date / Time amoxicillin Allergy Unknown Verified 09/25/20 15:08 bee venom protein (honey bee) Allergy Unknown Verified 09/25/20 15:08 Sulfa (Sulfonamide Allergy Unknown Verified 09/25/20 15:08 Antibiotics) Review of Systems ROS Statement: Those systems with pertinent positive or pertinent negative responses have been documented in the HPI. ROS Other: All systems not noted in ROS Statement are negative. Constitutional: Denies: fever Eyes: Denies: eye pain ENT: Denies: ear pain Respiratory: Denies: cough, dyspnea Cardiovascular: Denies: chest pain Endocrine: Denies: fatigue Gastrointestinal: Reports: nausea. Denies: abdominal pain, vomiting Genitourinary: Denies: urgency Musculoskeletal: Denies: back pain Skin: Denies: rash Neurological: Reports: as per HPI, confusion. Denies: weakness Past Medical History Past Medical History: Seizure Disorder History of Any Multi-Drug Resistant Organisms: None Reported Past Surgical History: Tonsillectomy, Tubal Ligation Past Psychological History: No Psychological Hx Reported Smoking Status: Never smoker Past Alcohol Use History: Abuse Past Drug Use History: None Reported - Past Family History Mother Family Medical History: No Reported History General Exam Limitations: no limitations General appearance: alert, in no apparent distress Head exam: Present: atraumatic Eye exam: Present: normal appearance, PERRL, EOMI ENT exam: Present: normal oropharynx Neck exam: Present: normal inspection. Absent: tenderness, meningismus Respiratory exam: Present: normal lung sounds bilaterally Cardiovascular Exam: Present: regular rate, normal rhythm GI/Abdominal exam: Present: soft. Absent: tenderness Extremities exam: Present: normal inspection, full ROM Neurological exam: Present: alert, oriented X3, CN II-XII intact. Absent: motor sensory deficit Expanded Neurological exam: Present: protecting the airway Patient oriented to: Present: person, place, time Speech: Present: fluid speech Cranial nerves: EOM's Intact: Normal Sensory exam: Upper Extremity Light Touch: Normal, Lower Extremity Light Touch: Normal Motor strength exam: RUE: 5, LUE: 5, RLE: 5, LLE: 5 Eye Response: (4) open spontaneously Motor Response: (6) obeys commands Verbal Response: (5) oriented Psychiatric exam: Present: normal affect, normal mood Skin exam: Present: normal color Course Vital Signs 09/25/20 09/25/20 13:14 14:05 Temperature 98.1 F Pulse Rate 107 H 106 H Respiratory 18 18 Rate Blood Pressure 158/107 148/110 O2 Sat by Pulse 96 95 Oximetry EKG Findings - EKG Comments: EKG Findings:: Sinus tachycardia 106. OK 186. QRS 80. QT 360. QTC 470. Normal axis. Normal QRS. No acute ST change. Medical Decision Making - Medical Decision Making Patient reevaluated. Patient remains tremorous and hypertensive. Additional medications provided. Case discussed with Dr. Barahona, who will admit covered for hospital call - Lab Data Result diagrams: 09/25/20 14:05 09/25/20 14:05 Lab Results 09/25/20 09/25/20 Range/Units 14:05 14:05 WBC 6.2 (3.8-10.6) k/uL RBC 4.25 (3.80-5.40) m/uL Hgb 14.2 (11.4-16.0) gm/dL Hct 43.2 (34.0-46.0) % MCV 101.6 H (80.0-100.0) fL MCH 33.4 (25.0-35.0) pg MCHC 32.8 (31.0-37.0) g/dL RDW 15.0 (11.5-15.5) % Plt Count 98 L (150-450) k/uL MPV 9.2 Neutrophils % 89 % Lymphocytes % 7 % Monocytes % 3 % Eosinophils % 0 % Basophils % 0 % Neutrophils # 5.5 (1.3-7.7) k/uL Lymphocytes # 0.5 L (1.0-4.8) k/uL Monocytes # 0.2 (0-1.0) k/uL Eosinophils # 0.0 (0-0.7) k/uL Basophils # 0.0 (0-0.2) k/uL Manual Slide Review Performed Poikilocytosis (manual Present Macrocytosis Slight Sodium 136 L (137-145) mmol/L Potassium 4.6 (3.5-5.1) mmol/L Chloride 101 (98-107) mmol/L Carbon Dioxide 18 L (22-30) mmol/L Anion Gap 17 mmol/L BUN 13 (7-17) mg/dL Creatinine 0.49 L (0.52-1.04) mg/dL Est GFR (CKD-EPI)AfAm >90 (>60 ml/min/1.73 sqM) Est GFR (CKD-EPI)NonAf >90 (>60 ml/min/1.73 sqM) Glucose 127 H (74-99) mg/dL Calcium 9.1 (8.4-10.2) mg/dL Magnesium 1.4 L (1.6-2.3) mg/dL Total Bilirubin 1.2 (0.2-1.3) mg/dL AST 129 H (14-36) U/L ALT 62 H (4-34) U/L Alkaline Phosphatase 151 H (38-126) U/L Total Protein 8.0 (6.3-8.2) g/dL Albumin 4.8 (3.5-5.0) g/dL Serum Alcohol 22 mg/dL Disposition Clinical Impression: New onset seizure, Alcohol withdrawal, Hypertension Disposition: ADMITTED IP TO THIS HOSP Is patient prescribed a controlled substance at d/c from ED?: No Referrals: None,Stated [Primary Care Provider] - 1-2 days Decision Time: 15:40
[2020-09-25 14:25] LABS: ALT 62 U/L (4-34); African American GFR (CKD) >90 (>60 ml/min/1.73 sqM); Albumin 4.8 g/dL (3.5-5.0); Alcohol 22 mg/dL; Anion Gap 17 mmol/L; Blood Urea Nitrogen 13 mg/dL (7-17); Calcium 9.1 mg/dL (8.4-10.2); Carbon Dioxide 18 mmol/L (22-30); Chloride 101 mmol/L (98-107); Glucose 127 mg/dL (74-99); Non-African American GFR(CKD) >90 (>60 ml/min/1.73 sqM); Sodium 136 mmol/L (137-145); Total Bilirubin 1.2 mg/dL (0.2-1.3)
[2020-09-25 14:27] LABS: AST 129 U/L (14-36); Magnesium 1.4 mg/dL (1.6-2.3); Potassium 4.6 mmol/L (3.5-5.1)
[2020-09-25 14:28] LABS: Alkaline Phosphatase 151 U/L (38-126)
[2020-09-25 14:29] LABS: Basophils % (A) 0 %; Eosinophils % (A) 0 %; HCT 43.2 % (34.0-46.0); HGB 14.2 gm/dL (11.4-16.0); Lymphocytes # (A) 0.5 k/uL (1.0-4.8); Lymphocytes % (A) 7 %; MCH 33.4 pg (25.0-35.0); MCHC 32.8 g/dL (31.0-37.0); MCV 101.6 fL (80.0-100.0); Macrocytosis Slight; Mean Platelet Volume 9.2; Monocytes # (A) 0.2 k/uL (0-1.0); Monocytes % (A) 3 %; Neutrophils # (A) 5.5 k/uL (1.3-7.7); Neutrophils % (A) 89 %; RBC 4.25 m/uL (3.80-5.40); WBC 6.2 k/uL (3.8-10.6)
[2020-09-25] MEDS ORDERED: MAGNESIUM SULFATE-D5W PMX 1 GM in DEXTROSE/WATER 1 100ML.BAG IVPB ONE (14:57)
[2020-09-25 15:01] LABS: Platelet Count 98 k/uL (150-450)
[2020-09-25 15:02] LABS: Poikilocytosis (M) Present
--- NOTE | 2020-09-25 15:10 | CT ---
EXAMINATION TYPE: CT brain wo con DATE OF EXAM: 09/25/2020 COMPARISON: None HISTORY: Seizure CT DLP: 1023.[address] of the brain was performed. The ventricles, basal cisterns and sulci overlying the cerebral convexities demonstrate mild enlargem ent. There is no evidence for intracranial hemorrhage or sulcal effacement. There is decreased attenuation about the periventricular white matter and deep white matter of both c erebral hemispheres, compatible with chronic small vessel ischemia. Differential diagnosis does inclu de demyelination. No mass effects are seen.No midline shift. Osseous calvarium is intact. If symptoms persist consider MRI. IMPRESSION: 1. Age related atrophic and chronic small vessel ischemic change without acute intracranial process s een at this time.
[2020-09-25] MEDS ORDERED: hydrALAZINE HCL 20 MG/ML 1 ML VIAL IVP STA (15:32)
[2020-09-25] MEDS ORDERED: hydrALAZINE HCL 20 MG/ML 1 ML VIAL IVP PRN (15:41)
[2020-09-25] MEDS ORDERED: NALOXONE 0.4 MG/ML 1 ML VIAL IV PRN (15:42)
[2020-09-25] MEDS ORDERED: LORazepam 2 MG/ML INJ IV PRN ×4 (15:43)
[2020-09-25] MEDS ORDERED: THIAMINE 100 MG/ML 2 ML VIAL IM STA (15:43)
[2020-09-25] MEDS: amLODIPine 5 MG TAB PO SCH (16:13)
[2020-09-25] MEDS ORDERED: TEMAZEPAM 15 MG CAP PO PRN (19:29)
[2020-09-25] MEDS ORDERED: cloNIDine HCL 0.1 MG TAB PO PRN (19:29)
[2020-09-25] MEDS ORDERED: HYDROcodone/APAP 5-325MG 1 EACH TAB PO PRN (19:29)
[2020-09-25] MEDS: THIAMINE 100 MG TAB PO SCH (19:31)
--- NOTE | 2020-09-25 20:05 | XR ---
EXAMINATION TYPE: XR chest 1V portable DATE OF EXAM: 09/25/2020 COMPARISON: NONE HISTORY: Mental status TECHNIQUE: Single view FINDINGS: Heart is normal. Lungs are clear of infiltrate. There is no heart failure. There are no hil ar masses. Bony thorax is intact. IMPRESSION: No active cardiopulmonary disease. Normal heart.
--- NOTE | 2020-09-25 20:56 | HP ---
HISTORY AND PHYSICAL DATE OF SERVICE: 09/25/2020 CHIEF COMPLAINT: Seizure disorder. HISTORY OF PRESENT ILLNESS: This 55-year-old woman with a past medical history of multiple medical problems, including seizure disorder, history of tonsillectomy, tubal ligation, apparently not being followed by any primary physician, was apparently abusing alcohol also significantly. Patient apparently lives with her grandparents and the patient also drinks with her . The patient was taken to [facility] with complaints of a reported seizure. The patient does not recall the episode. The patient is confused and jittery. Patient is also going through withdrawals at this time. Her last drink was about a day or two ago, and the patient was admitted for further evaluation and treatment. There is no history of fever, rigors or chills at this time. PAST MEDICAL HISTORY: History of seizure disorder. HOME MEDICATIONS: Multivitamins 1 p.o. daily. ALLERGIES: AMOXICILLIN, BEE VENOM, SULFA. FAMILY HISTORY: No history of heart disease or strokes in the family. SOCIAL HISTORY: Significant alcohol intake up to a point. No history of smoking. REVIEW OF SYSTEMS: ENT: No diminished hearing. No diminished vision. CARDIOVASCULAR SYSTEM: No angina, palpitations. RESPIRATORY SYSTEM: No cough, hemoptysis. GI: No nausea, vomiting. : No dysuria or retention. NERVOUS SYSTEM: As mentioned earlier. ALLERGY/IMMUNOLOGY: No asthma, hayfever. MUSCULOSKELETAL: NTD CONSTITUTIONAL: As mentioned earlier. DERMATOLOGY: Negative. RHEUMATOLOGY: Negative. PSYCHIATRY: Negative. PHYSICAL EXAMINATION: Patient is alert and oriented x3. Pulse 106, blood pressure 148/110, respiration 18, temperature 98.1, pulse ox 95% on room air. HEENT: Conjunctivae normal. Oral mucosa moist. NECK: No jugular venous distention. No carotid bruit. No lymph node enlargement. CARDIOVASCULAR SYSTEM: S1, S2 muffled. No S3. No S4. RESPIRATORY SYSTEM: Breath sounds diminished at the bases. A few rhonchi. No crackles. ABDOMEN: Soft, non-tender. No mass palpable. LEGS: No edema. No swelling. NERVOUS SYSTEM: Higher functions as mentioned earlier. Moves all 4 limbs. No focal motor or sensory deficit. LYMPHATICS: No lymph node palpable in neck, axillae or groin. SKIN: No ulcer, rash, bleeding. JOINTS: No active deforming arthropathy. LABS: WBC 6.2, MCV 101.6, sodium 136. Other labs are noted. LFTs are noted. CT scan of the brain, which was reviewed personally by me, showed age-related atrophy and small-vessel ischemic changes without any acute changes. ASSESSMENT: 1. Acute seizure disorder, possibly alcohol-induced from alcohol withdrawal syndrome. 2. Acute delirium tremens. 3. History of ETOH. 4. History of seizure disorder. 5. History of tonsillectomy. 6. History of probable noncompliance. 7. Thrombocytopenia. 8. Hyponatremia. 9. Elevated AST, ALT; possibly alcoholic hepatitis. 10.Hypomagnesemia. RECOMMENDATIONS AND DISCUSSION: In this 55-year-old woman who presented with multiple complex medical issues, we will monitor the patient closely. Will admit the patient. Follow with [facility] protocol. Neurology consultation. Otherwise, neurovascular workup. Other than that, alcohol cessation. cannery worker and renal case manager to arrange for alcohol substance abuse counseling outpatient. Prognosis guarded because of multiple complex medical issues. DVT prophylaxis. Discussed with the patient, who understands and agrees. Further recommendations to follow. I also recommend that the patient follow up with a primary physician closely in the outpatient setting. The patient understands and agrees. MMMALLORYL / CLEOPATRAN: [id number] / MTDD
[2020-09-26] MEDS: HEPARIN SODIUM,PORCINE 5,000 UNIT/ML 1 ML VIAL SQ SCH ×3 (01:01→19:30)
[2020-09-26] MEDS: SODIUM CHLORIDE 0.9% 1,000 ML IV SCH ×3 (01:03→19:30)
[2020-09-26 01:32] LABS: Appearance,Urine Cloudy (Clear); Bacteria,Urine Rare /hpf; Bilirubin,Urine Negative (Negative); Blood,Urine Negative (Negative); Color,Urine Yellow; Glucose,Urine (UA) Negative (Negative); Ketones,Urine 3+ (Negative); Leukocyte Esterase,Urine Negative (Negative); Mucus,Urine Rare /hpf; Nitrite,Urine Negative (Negative); PH, Urine 6.5 (5.0-8.0); Protein,Urine 1+ (Negative); RBC,Urine 1 /hpf (0-5); Specific Gravity,Urine 1.019 (1.001-1.035); Squamous Epithelial Cell,Urine 8 /hpf (0-4); Urobilinogen,Urine <2.0 mg/dL (<2.0); WBC,Urine 3 /hpf (0-5)
[2020-09-26 01:37] LABS: Amphetamine Screen,Urine Not Detected (NotDetected); Barbiturate Screen,Urine Not Detected (NotDetected); Benzodiazepines Screen,Urine Detected (NotDetected); Cocaine Screen,Urine Not Detected (NotDetected); Methadone Screen, Urine Not Detected (NotDetected); Opiate Screen,Urine Not Detected (NotDetected); Oxycodone Screen, Urine Not Detected (NotDetected); Phencyclidine Screen,Urine Not Detected (NotDetected); Tricyclic Antidepressant,Urine Not Detected (NotDetected); Urn Cannabinoid Scrn Not Detected (NotDetected)
[2020-09-26] MEDS: PANTOPRAZOLE 40 MG TABLET PO SCH (10:14)
[2020-09-26] MEDS: amLODIPine 5 MG TAB PO SCH (10:14)
[2020-09-26] MEDS: THIAMINE 100 MG TAB PO SCH ×2 (10:15→17:59)
[2020-09-26] MEDS ORDERED: Magnesium Replacement Protocol 1 EACH MISC MISCELLANE PRN (11:06)
[2020-09-26] MEDS ORDERED: Potassium Replacement Protocol 1 EACH MISC MISCELLANE PRN (11:06)
[2020-09-26 11:32] LABS: African American GFR (CKD) 119.8 (60.0-200.0); Albumin/Globulin Ratio 1.9 (1.60-3.17); Anion Gap 12.6 mmol/L (4.00-12.00); Calcium 8.4 mg/dL (8.7-10.3); Carbon Dioxide 23.4 mmol/L (21.6-31.8); Globulin 2.1 g/dL (1.6-3.3); Non-African American GFR(CKD) 103.3 (60.0-200.0); Potassium 3.8 mmol/L (3.5-5.5); Total Bilirubin 1.3 mg/dL (0.3-1.2); Total Protein 6.1 g/dL (6.2-8.2)
[2020-09-26] MEDS ORDERED: MULTIVITAMINS, THERA 1 EACH TAB PO SCH (12:00)
[2020-09-26] MEDS ORDERED: FOLIC ACID 1 MG TAB PO SCH (12:00)
--- NOTE | 2020-09-26 12:34 | P.CNNES ---
History of Present Illness Consult date: 09/26/20 Requesting physician: Jackson George Reason for Consult: seizure History of Present Illness: Is a 55-year-old woman with history of chronic alcohol use that presented to the emergency department and because of the seizure episode. The patient stated that she drinks 1 pint of alcohol daily but she has stopped drinking in the last 3 days then the family members noticed that the patient had the shaking of all extremities and eye fluttering. She said that episode lasted for about a minutes. She denies any urinary or bowel incontinence appear denies any tongue bite after the episode appeared she denies any seizure prior to that. Denies any child's seizure. She is a chronic alcohol use and the she drinks on a daily basis as stated. Regarding the patient's history she said it was normal, was vaginal delivery and there is no complication. There is no family history of seizures. Patient had CT of the head in our facility and it was reported as age-related atrophy and chronic small vessel ischemic change without acute intracranial process seen at this time. Patient MCV is 101.6 which is slightly elevated. Initial serum glucose is 127. The sodium is 136 which is minimally low Y. Calcium is 9.1 is normal. The magnesium is 1.4 which is a mildly lower. AST is 129 in the ALT 62. Urine drug screen is positive for benzos. Serum alcohol level was 22. Review of Systems Review of system: The 12 point system was reviewed and apparent positive and negative per HPI. Past Medical History Past Medical History: Liver Disease, Pneumonia, Renal Disease, Seizure Disorder Additional Past Medical History / Comment(s): Alcohol abuse with past withdrawal/tremors/nausea, bronchitis, murmur, UTI, renal insufficiency, growth on liver-unable to biopsy d/t too close to her spine, IBS, migraines. History of Any Multi-Drug Resistant Organisms: None Reported Past Surgical History: Tonsillectomy, Tubal Ligation Past Anesthesia/Blood Transfusion Reactions: No Reported Reaction Smoking Status: Never smoker - Past Family History Mother Family Medical History: Asthma, Cancer, COPD, Diabetes Mellitus, Hyperlipidemia, Hypertension Additional Family Medical History / Comment(s): Cervical cancer. Father History Unknown: Yes Family Medical History: Unable to Obtain Additional Family Medical History / Comment(s): Pt does not know her father. Medications and Allergies Home Medications Medication Instructions Recorded Confirmed Type Multivitamins, Thera [Multivitamin 1 tab PO DAILY 02/05/20 09/25/20 History (formulary)] Allergies Allergy/AdvReac Type Severity Reaction Status Date / Time amoxicillin Allergy Unknown Verified 09/25/20 15:08 bee venom protein (honey bee) Allergy Unknown Verified 09/25/20 15:08 Sulfa (Sulfonamide Allergy Unknown Verified 09/25/20 15:08 Antibiotics) Physical Examination - Vital Signs Vital Signs: Vital Signs Temp Pulse Pulse Resp BP BP Pulse Ox 09/26/20 07:50 98.3 F 90 18 139/96 97 09/26/20 07:32 96 09/26/20 05:45 98.7 F 100 18 122/85 97 09/25/20 19:00 88 16 128/81 95 09/25/20 15:59 148/93 09/25/20 14:05 106 H 18 148/110 95 09/25/20 13:14 98.1 F 107 H 18 158/107 96 Intake and Output 09/25/20 09/26/20 09/26/20 22:59 06:59 14:59 Intake Total 120 Balance 120 Intake: Oral 120 Other: Weight 58.967 kg GENERAL: The patient is lying in bed and is not in acute distress. CHEST: The heart rate is regular rate rhythm. No murmurs to auscultation. LUNG: Clear to auscultation bilaterally no wheezing noted throughout. Not labored breathing. ABDOMEN/GI: Bowel sounds present in all 4 quadrants. No tenderness to palpation throughout. NEUROLOGICAL: Higher mental function: The patient is awake, alert, oriented to self, place and time. Patient is following commands. No aphasia and no neglect. Cranial nerves: The pupils are round, equal and reactive to light and accommodation. Visual rosario are full to confrontation throughout. Extraocular movement is intact no nystagmus is noted. Facial sensation is normal to touch throughout. The facial strength is normal throughout. Hearing is normal bilaterally to hand rub. Tongue is midline and moved [id number] without any difficulty. No dysarthria is noted. Shoulder shrug is normal bilaterally. Motor: Gait is deferred. The strength is 5 over 5 throughout. Normal tone and bulk. Has some tremoulous of whole body. Cerebellum: Normal finger to nose heel to chin bilaterally. Sensation: Sensation is normal to touch throughout. Reflexes (right/left): 2+ Plantars are downgoing bilaterally. Results Smith virus PCR is nondetected. - Laboratory Findings CBC and BMP: 09/25/20 14:05 09/26/20 06:52 Abnormal Lab Findings: Abnormal Labs 09/25/20 09/25/20 09/26/20 14:05 14:05 01:04 MCV 101.6 H Plt Count 98 L Lymphocytes # 0.5 L Sodium 136 L Carbon Dioxide 18 L Anion Gap Creatinine 0.49 L Glucose 127 H Calcium Magnesium 1.4 L Total Bilirubin AST 129 H ALT 62 H Alkaline Phosphatase 151 H Total Protein Urine Appearance Cloudy H Urine Protein 1+ H Urine Ketones 3+ H Ur Squamous Epith Cells 8 H Urine Bacteria Rare H Urine Mucus Rare H U Benzodiazepines Scrn Detected H 09/26/20 06:52 MCV Plt Count Lymphocytes # Sodium 134 L Carbon Dioxide Anion Gap 12.60 H Creatinine Glucose 115 H Calcium 8.4 L Magnesium Total Bilirubin 1.3 H AST 61 H ALT 50 H Alkaline Phosphatase Total Protein 6.1 L Urine Appearance Urine Protein Urine Ketones Ur Squamous Epith Cells Urine Bacteria Urine Mucus U Benzodiazepines Scrn Assessment and Plan Assessment: This is a 55-year-old woman that presented to the emergency department for alcohol withdrawal seizure Provoked seizure (Alcohol withdrawal seizure) Chronic alcohol use that stopped drinking 3 days ago Macrocytosis due to alcohol use Electrolyte imbalance such as mild hyponatremia and hypomagnesemia due to alcohol use Plan: An EEG is not needed since this is all call withdrawal seizure. No further imaging needed from a neurological standpoint. The patient was counseled on alcohol cessation. Once the patient is sober and has further episodes of seizure/seizure-like episodes then would recommend getting further workup such as an EEG and possible further imaging but this point no imaging or EEG is needed. Patient is on thiamine 100 mg 1 tablet twice a day. I started the patient on vitamin B12 1000 g daily. She is on folic acid 1 mg daily. Patient is on CIWA protocol will defer the management to the primary team Regarding I imbalance recommend the corrected at and we'll defer the management to the primary team. No further workup is needed. Neurology will sign off. Please reconsult if needed. Thank you for the consultation. Doug Ayala MD Neuro-Hospitalist Time with Patient: Greater than 30
[2020-09-26 12:46] LABS: Basophils # (A) 0.03 X 10*3/uL (0.00-0.10); Basophils % (A) 0.6 %; Eosinophils # (A) 0.02 X 10*3/uL (0.04-0.35); Eosinophils % (A) 0.4 %; HCT 40.3 % (37.2-46.3); HGB 13.9 g/dL (12.0-15.0); Lymphocytes # (A) 0.66 X 10*3/uL (0.90-5.00); Lymphocytes % (A) 13.8 %; MCH 34.5 pg (27.0-32.0); MCHC 34.5 g/dL (32.0-37.0); Mean Platelet Volume 10.8 fL (9.5-12.2); Monocytes # (A) 0.52 X 10*3/uL (0.20-1.00); Monocytes % (A) 10.9 %; Neutrophils # (A) 3.53 X 10*3/uL (1.80-7.70); Neutrophils % (A) 73.7 %; Platelet Count 85 X 10*3/uL (140-440); RBC 4.03 X 10*6/uL (4.10-5.20); RDW 14.2 % (11.5-14.5); WBC 4.79 X 10*3/uL (4.50-10.00)
[2020-09-26 16:29] VITALS: RESP 16
--- NOTE | 2020-09-26 18:06 | PN ---
PROGRESS NOTE DATE OF SERVICE: 09/26/2020 This 55-year-old woman who was admitted with possible acute seizure disorder, alcohol withdrawal and acute delirium tremens is being closely monitored. Neurology has seen the patient and the patient's medications are being adjusted at this time. Otherwise, the patient is still jittery and going through DTs. No chest pain. No palpitations. No fever. PHYSICAL EXAMINATION: Alert and oriented x3. Pulse 98, blood pressure 128/82, respiration 16, temperature 98.2, pulse ox 97% on room air. HEENT: Conjunctivae normal. NECK: No jugular venous distention. CARDIOVASCULAR SYSTEM: S1, S2 muffled. RESPIRATORY SYSTEM: Breath sounds diminished at the bases. No rhonchi. No crackles. ABDOMEN: Soft, non-tender. LEGS: No edema. No swelling. NERVOUS SYSTEM: Diffusely weak. Tremors present. LABS: WBC 4.2, hemoglobin 13.2, sodium 134. Other labs are noted. UA is cloudy with ketones. ASSESSMENT: 1. Acute seizure disorder, possibly alcohol-induced, with alcohol withdrawal syndrome. 2. Acute delirium tremens. 3. Acute alcoholic ketosis. 4. History of ETOH. 5. History of seizure disorder. 6. History of tonsillectomy. 7. History of probable noncompliance. 8. Thrombocytopenia. 9. Hyponatremia. 10.Elevated AST, ALT; possibly alcoholic hepatitis. 11.Hypomagnesemia. RECOMMENDATIONS AND DISCUSSION: I recommend to continue current medications, continue with the monitoring, symptomatic treatment. Continue with CIWA protocol. Continue vitamins. Monitor electrolytes closely. Otherwise, closely monitor. Recommend close followup with a primary physician in the outpatient setting as well as alcohol rehab as an outpatient. Further recommendations to follow. MMODL / IJN: [id number] /
[2020-09-26] MEDS: CYANOCOBALAMIN 500 MCG TAB PO SCH (18:34)
[2020-09-27 06:23] LABS: ALT 49 U/L (4-34); AST 82 U/L (14-36); African American GFR (CKD) >90 (>60 ml/min/1.73 sqM); Albumin/Globulin Ratio 1.4; Alkaline Phosphatase 99 U/L (38-126); Anion Gap 8 mmol/L; Blood Urea Nitrogen 7 mg/dL (7-17); Calcium 9.1 mg/dL (8.4-10.2); Carbon Dioxide 26 mmol/L (22-30); Chloride 97 mmol/L (98-107); Globulin 2.8 g/dL; Glucose 111 mg/dL (74-99); Magnesium 1.7 mg/dL (1.6-2.3); Non-African American GFR(CKD) >90 (>60 ml/min/1.73 sqM); Potassium 3.6 mmol/L (3.5-5.1); Sodium 131 mmol/L (137-145); Total Bilirubin 1.3 mg/dL (0.2-1.3); Total Protein 6.8 g/dL (6.3-8.2)
[2020-09-27] MEDS: amLODIPine 5 MG TAB PO SCH (08:44)
[2020-09-27] MEDS: HEPARIN SODIUM,PORCINE 5,000 UNIT/ML 1 ML VIAL SQ SCH ×2 (08:44→08:47)
[2020-09-27] MEDS: PANTOPRAZOLE 40 MG TABLET PO SCH (08:44)
[2020-09-27] MEDS: CYANOCOBALAMIN 500 MCG TAB PO SCH (08:44)
[2020-09-27] MEDS: THIAMINE 100 MG TAB PO SCH (08:44)
[2020-09-27 09:06] VITALS: BP 134/91; PULSE 96; TEMP 98
[2020-09-27 10:05] LABS: Basophils # (A) 0.02 X 10*3/uL (0.00-0.10); Basophils % (A) 0.6 %; Eosinophils # (A) 0.09 X 10*3/uL (0.04-0.35); Eosinophils % (A) 2.6 %; HCT 41.2 % (37.2-46.3); Lymphocytes # (A) 0.77 X 10*3/uL (0.90-5.00); Lymphocytes % (A) 22.4 %; MCH 34.1 pg (27.0-32.0); MCV 100.5 fL (80.0-97.0); Mean Platelet Volume 11.2 fL (9.5-12.2); Monocytes # (A) 0.37 X 10*3/uL (0.20-1.00); Monocytes % (A) 10.8 %; Neutrophils # (A) 2.17 X 10*3/uL (1.80-7.70); Platelet Count 85 X 10*3/uL (140-440); WBC 3.44 X 10*3/uL (4.50-10.00)
--- NOTE | 2020-09-28 10:01 | DS ---
DISCHARGE SUMMARY DATE OF SERVICE: 09/27/2020 FINAL DIAGNOSES: 1. Acute seizure disorder possibly alcohol induced with alcohol withdrawal syndrome. 2. Acute delirium tremens. 3. Acute alcoholic ketosis. 4. History of EtOH. 5. History of seizure disorder. 6. History of tonsillectomy. 7. History of probable noncompliance. 8. Thrombocytopenia. 9. Hyponatremia. 10.Elevated AST, ALT, possibly alcoholic hepatitis. 11.Hypomagnesemia. DISCHARGE DISPOSITION: The patient will be discharged in stable condition with guarded prognosis. HISTORY OF PRESENT ILLNESS: This 55-year-old woman with a past medical history of multiple medical problems admitted with alcohol withdrawal and possible acute seizure disorders. Patient treated symptomatically. Dr. Ayala saw the patient. Medication adjusted. On exam, vitals are stable. CARDIOVASCULAR: S1, S2 muffled. ABDOMEN: Soft. NERVOUS SYSTEM: No focal deficits. CT scan of the brain did not show acute abnormality. DISCHARGE ADVICE: 1. Diet is cardiac. 2. Activity limited until followup. 3. Follow up with Dr. Rodriguez in 2-3 days. 4. Follow up with Dr. Beatty in 1 week. Medications are: 1. Multivitamins 1 p.o. daily. 2. Catapres 0.1 p.o. b.i.d. 3. Folic acid 1 mg. 4. Thiamine 100 mg p.o. b.i.d. 5. No EtOH. Once again the patient will be discharged in a stable condition with guarded prognosis. MMODL / IJN: [id number] /
== END 2020-09-27 11:47 | disposition home or self-care (01) | DRG 897 ==
LOC: EC 13:13 → 5NMEDONC 15:42 → 1SOBS 09-26 09:13 → 6NMEDSUR 09-26 14:09
PROVIDERS: ADMIT Hospitalist; ATTEND Hospitalist
DX: F10.231 Alcohol dependence with withdrawal delirium (principal); E87.1 Hypo-osmolality and hyponatremia; D69.6 Thrombocytopenia, unspecified; E88.89 Other specified metabolic disorders; K70.10 Alcoholic hepatitis without ascites; G40.909 Epilepsy, unspecified, not intractable, without status epilepticus; Z20.822 Contact with and (suspected) exposure to COVID-19; D75.89 Other specified diseases of blood and blood-forming organs; Y90.1 Blood alcohol level of 20-39 mg/100 ml; I10 Essential (primary) hypertension; E83.42 Hypomagnesemia; K58.9 Irritable bowel syndrome, unspecified; G43.909 Migraine, unspecified, not intractable, without status migrainosus; Z91.19 Patient's noncompliance with other medical treatment and regimen; Z79.899 Other long term (current) drug therapy; Z87.01 Personal history of pneumonia (recurrent); Z90.89 Acquired absence of other organs; Z98.51 Tubal ligation status; Z87.440 Personal history of urinary (tract) infections; Z98.890 Other specified postprocedural states; Z88.2 Allergy status to sulfonamides; Z88.0 Allergy status to penicillin; Z91.030 Bee allergy status; Z83.3 Family history of diabetes mellitus; Z82.5 Family history of asthma and other chronic lower respiratory diseases; Z83.49 Family history of other endocrine, nutritional and metabolic diseases; Z80.49 Family history of malignant neoplasm of other genital organs; Z82.49 Family history of ischemic heart disease and other diseases of the circulatory system
CPT/HCPCS: 36415; 70450; 71045; 80053; 80306; 80320; 81001; 83735; 85025; 87635; 93005; 96361; 96365; 96375; 99285

== ENCOUNTER 2021-02-21 15:24 | Inpatient (IN) | payer OTHER ==
[2021-02-21] MEDS ORDERED: SODIUM CHLORIDE 0.9% 1,000 ML IV ONE (15:39)
--- NOTE | 2021-02-21 15:46 | ED ---
General Adult HPI - General Chief complaint: Shortness of Breath Stated complaint: possible stemi Source: EMS Mode of arrival: EMS Limitations: no limitations - History of Present Illness Initial comments: Is a 56-year-old female with no known past medical history who presents or urgency department for generalized malaise, dizziness, nausea, vomiting. The patient states that she's been having symptoms of nausea and vomiting for the last couple of days. She states that she is vomiting every few hours. Describes as non-bloody and nonbilious. States that she's also been having diarrhea associated with this every couple of hours and is nonbloody as well. She states that she has been feeling very lightheaded and states that her urine has appeared dark. She denies any abdominal pain however does complain of some shortness of breath. She states that she's been dealing with the shortness of breath for quite some time however seems to worsen over the last month. She s tates it's worse with exertion. She has no associated chest pain however. She does complain of cough productive of some mucus. States that she has felt feverish at home however has not taken her temperature. No chills. She admits to headache and sore throat as well. She denies any dysuria or hematuria. She states that she used to be a daily drinker about a half a pint per day of her states that she quit drinking about a week and a half ago. States that she does not feel like she is going through any withdrawals at this time. She denies any smoking history or drug use. Today the patient states that her card broke down on the side of road. She was approximately 1 mile from the gas station and started walking. She states when she got about half way there she started feeling very ill and shortness of breath and lightheaded. She made to the gas station and and EMS was called because she did not appear well. In route the patient and EKG that was concerning for possible STEMI. She was given an aspirin and Zofran and brought emergency department. Again the patient does not complain of any active chest pain nor has she had no chest pain recently. - Related Data Home Medications Medication Instructions Recorded Confirmed Multivitamins, Thera [Multivitamin 1 tab PO DAILY 02/05/20 02/21/21 (formulary)] Allergies Allergy/AdvReac Type Severity Reaction Status Date / Time amoxicillin Allergy Unknown Verified 02/21/21 16:05 bee venom protein (honey bee) Allergy Unknown Verified 02/21/21 16:05 Sulfa (Sulfonamide Allergy Unknown Verified 02/21/21 16:05 Antibiotics) Review of Systems ROS Statement: Those systems with pertinent positive or pertinent negative responses have been documented in the HPI. ROS Other: All systems not noted in ROS Statement are negative. Past Medical History Past Medical History: Liver Disease, Pneumonia, Renal Disease, Seizure Disorder Additional Past Medical History / Comment(s): Alcohol abuse with past withdrawal/tremors/nausea, bronchitis, murmur, UTI, renal insufficiency, growth on liver-unable to biopsy d/t too close to her spine, IBS, migraines. History of Any Multi-Drug Resistant Organisms: None Reported Past Surgical History: Tonsillectomy, Tubal Ligation Past Anesthesia/Blood Transfusion Reactions: No Reported Reaction Past Psychological History: Depression Smoking Status: Never smoker Past Alcohol Use History: None Reported Past Drug Use History: None Reported - Past Family History Mother Family Medical History: Asthma, Cancer, COPD, Diabetes Mellitus, Hyperlipidemia, Hypertension Additional Family Medical History / Comment(s): Cervical cancer. Father History Unknown: Yes Family Medical History: Unable to Obtain Additional Family Medical History / Comment(s): Pt does not know her father. General Exam - General Exam Comments Initial Comments: Constitutional: Awake alert Appears comfortable Head: Normocephalic atraumatic Eyes: no conjunctival injection No scleral icterus EOMI, pupils are 4 mm and reactive bilaterally Neck: No JVD Supple, no midline tenderness Heart: She is tachycardic with a regular rhythm normal S1-S2 Lungs: Clear to auscultation bilaterally No wheezing No rales Abdomen: Soft nondistended nontender Extremities: Non edematous DP pulses intact Radial pulses intact Neuro: A&Ox3, extraocular muscles are intact, no facial droop, 5 out of 5 strength in upper and lower extremities bilaterally, normal finger to nose and heel to welch testing. The patient does have tremors in her bilateral upper extremities. No asterixis noted No focal neurologic deficits Psych: Appropriate mood and affect Limitations: no limitations Course Vital Signs 02/21/21 02/21/21 02/21/21 15:28 15:30 16:15 Temperature 98 F Pulse Rate 113 H 116 H 107 H Respiratory 18 22 20 Rate Blood Pressure 171/100 143/116 144/100 O2 Sat by Pulse 100 97 99 Oximetry 02/21/21 02/21/21 02/21/21 17:25 18:29 18:37 Temperature Pulse Rate 93 96 94 Respiratory 18 18 16 Rate Blood Pressure 131/89 155/109 116/64 O2 Sat by Pulse 99 98 100 Oximetry EKG Findings - EKG Comments: EKG Findings:: EKG showing sinus tachycardia with a rate of 112. Do not see any abnormal ST segment changes or T-wave inversion. QTC is 477. Other intervals appear normal. No ectopy. Medical Decision Making - Medical Decision Making Is a 56-year-old female who presents emergency Department with the above symptoms. Patient was found to be quite tachycardic and tremulous on arrival however the patient states her last alcohol intake was over a week ago. Blood work was obtained and was significant for an anion gap metabolic acidosis. Lactic acid was elevated as well as findings of ketosis in the urine and blood. The patient was given a liter of saline on arrival and started on maintenance fluids. Metabolic panel was repeated and showed resolution of the anion gap however some persistence of the metabolic acidosis. The patient's urine did show some evidence for infection however had quite a bit of squamous cells and the patient really didn't have any urinary symptoms. Doubt sepsis at this time. Did not start antibiotics. I feel the patient is likely's significant dehydrated due to poor oral oral intake for the last week or so. The patient will be admitted to the hospital for monitoring and hydration. Dr. Silva except see admission. - Lab Data Result diagrams: 02/21/21 15:46 02/21/21 19:00 Lab Results 02/21/21 02/21/21 02/21/21 Range/Units 15:44 15:45 15:46 WBC 5.3 (3.8-10.6) k/uL RBC 4.58 (3.80-5.40) m/uL Hgb 16.1 H (11.4-16.0) gm/dL Hct 47.1 H (34.0-46.0) % MCV 102.9 H (80.0-100.0) fL MCH 35.1 H (25.0-35.0) pg MCHC 34.1 (31.0-37.0) g/dL RDW 14.4 (11.5-15.5) % Plt Count 144 L (150-450) k/uL MPV 8.9 Neutrophils % 78 % Lymphocytes % 15 % Monocytes % 5 % Eosinophils % 1 % Basophils % 0 % Neutrophils # 4.1 (1.3-7.7) k/uL Lymphocytes # 0.8 L (1.0-4.8) k/uL Monocytes # 0.3 (0-1.0) k/uL Eosinophils # 0.0 (0-0.7) k/uL Basophils # 0.0 (0-0.2) k/uL Macrocytosis Slight PT (9.0-12.0) sec INR (<1.2) APTT (22.0-30.0) sec D-Dimer (<0.60) mg/L FEU Sodium (137-145) mmol/L Potassium (3.5-5.1) mmol/L Chloride (98-107) mmol/L Carbon Dioxide (22-30) mmol/L Anion Gap mmol/L BUN (7-17) mg/dL Creatinine (0.52-1.04) mg/dL Est GFR (CKD-EPI)AfAm (>60 ml/min/1.73 sqM) Est GFR (CKD-EPI)NonAf (>60 ml/min/1.73 sqM) Glucose (74-99) mg/dL POC Glucose (mg/dL) (75-99) mg/dL POC Glu Rug Repairer ID Lactic Ac Sepsis Rflx Plasma Lactic Acid Wyatt (0.7-2.0) mmol/L Calcium (8.4-10.2) mg/dL Magnesium (1.6-2.3) mg/dL Total Bilirubin (0.2-1.3) mg/dL AST (14-36) U/L ALT (4-34) U/L Alkaline Phosphatase (38-126) U/L Troponin I (0.000-0.034) ng/mL NT-Pro-B Natriuret Pep pg/mL Total Protein (6.3-8.2) g/dL Albumin (3.5-5.0) g/dL Lipase (23-300) U/L Urine Color Urine Appearance (Clear) Urine pH (5.0-8.0) Ur Specific [place] (1.001-1.035) Urine Protein (Negative) Urine Glucose (UA) (Negative) Urine Ketones (Negative) Urine Blood (Negative) Urine Nitrite (Negative) Urine Bilirubin (Negative) Urine Urobilinogen (<2.0) mg/dL Ur Leukocyte Esterase (Negative) Urine RBC (0-5) /hpf Urine WBC (0-5) /hpf Ur Squamous Epith Cells (0-4) /hpf Hyaline Casts (0-2) /lpf Urine Mucus (None) /hpf Serum Alcohol mg/dL Acetone, Qual (Negative) Coronavirus (PCR) (Not Detectd) Blood Type B Negative Blood Type Confirm B Negative Blood Type Recheck No Previous Record Bld Type Recheck Status CABO Indicated Antibody Screen NEGATIVE Spec Expiration Date 02/24/2021 - 234502/21/21 02/21/21 02/21/21 Range/Units 15:46 15:46 15:46 WBC (3.8-10.6) k/uL RBC (3.80-5.40) m/uL Hgb (11.4-16.0) gm/dL Hct (34.0-46.0) % MCV (80.0-100.0) fL MCH (25.0-35.0) pg MCHC (31.0-37.0) g/dL RDW (11.5-15.5) % Plt Count (150-450) k/uL MPV Neutrophils % % Lymphocytes % % Monocytes % % Eosinophils % % Basophils % % Neutrophils # (1.3-7.7) k/uL Lymphocytes # (1.0-4.8) k/uL Monocytes # (0-1.0) k/uL Eosinophils # (0-0.7) k/uL Basophils # (0-0.2) k/uL Macrocytosis PT 10.9 (9.0-12.0) sec INR 1.0 (<1.2) APTT 21.1 L (22.0-30.0) sec D-Dimer 0.96 H (<0.60) mg/L FEU Sodium 131 L (137-145) mmol/L Potassium 3.9 (3.5-5.1) mmol/L Chloride 94 L (98-107) mmol/L Carbon Dioxide 18 L (22-30) mmol/L Anion Gap 19 mmol/L BUN 14 (7-17) mg/dL Creatinine 0.99 (0.52-1.04) mg/dL Est GFR (CKD-EPI)AfAm 74 (>60 ml/min/1.73 sqM) Est GFR (CKD-EPI)NonAf 65 (>60 ml/min/1.73 sqM) Glucose 164 H (74-99) mg/dL POC Glucose (mg/dL) (75-99) mg/dL POC Glu Rug Repairer ID Lactic Ac Sepsis Rflx Plasma Lactic Acid Wyatt 2.7 H* (0.7-2.0) mmol/L Calcium 9.8 (8.4-10.2) mg/dL Magnesium 1.5 L (1.6-2.3) mg/dL Total Bilirubin 2.2 H (0.2-1.3) mg/dL AST 46 H (14-36) U/L ALT 19 (4-34) U/L Alkaline Phosphatase 114 (38-126) U/L Troponin I (0.000-0.034) ng/mL NT-Pro-B Natriuret Pep pg/mL Total Protein 8.0 (6.3-8.2) g/dL Albumin 5.0 (3.5-5.0) g/dL Lipase 461 H (23-300) U/L Urine Color Urine Appearance (Clear) Urine pH (5.0-8.0) Ur Specific [place] (1.001-1.035) Urine Protein (Negative) Urine Glucose (UA) (Negative) Urine Ketones (Negative) Urine Blood (Negative) Urine Nitrite (Negative) Urine Bilirubin (Negative) Urine Urobilinogen (<2.0) mg/dL Ur Leukocyte Esterase (Negative) Urine RBC (0-5) /hpf Urine WBC (0-5) /hpf Ur Squamous Epith Cells (0-4) /hpf Hyaline Casts (0-2) /lpf Urine Mucus (None) /hpf Serum Alcohol <10 mg/dL Acetone, Qual (Negative) Coronavirus (PCR) (Not Detectd) Blood Type Blood Type Confirm Blood Type Recheck Bld Type Recheck Status Antibody Screen Spec Expiration Date 02/21/21 02/21/21 02/21/21 Range/Units 15:46 15:46 16:14 WBC (3.8-10.6) k/uL RBC (3.80-5.40) m/uL Hgb (11.4-16.0) gm/dL Hct (34.0-46.0) % MCV (80.0-100.0) fL MCH (25.0-35.0) pg MCHC (31.0-37.0) g/dL RDW (11.5-15.5) % Plt Count (150-450) k/uL MPV Neutrophils % % Lymphocytes % % Monocytes % % Eosinophils % % Basophils % % Neutrophils # (1.3-7.7) k/uL Lymphocytes # (1.0-4.8) k/uL Monocytes # (0-1.0) k/uL Eosinophils # (0-0.7) k/uL Basophils # (0-0.2) k/uL Macrocytosis PT (9.0-12.0) sec INR (<1.2) APTT (22.0-30.0) sec D-Dimer (<0.60) mg/L FEU Sodium (137-145) mmol/L Potassium (3.5-5.1) mmol/L Chloride (98-107) mmol/L Carbon Dioxide (22-30) mmol/L Anion Gap mmol/L BUN (7-17) mg/dL Creatinine (0.52-1.04) mg/dL Est GFR (CKD-EPI)AfAm (>60 ml/min/1.73 sqM) Est GFR (CKD-EPI)NonAf (>60 ml/min/1.73 sqM) Glucose (74-99) mg/dL POC Glucose (mg/dL) (75-99) mg/dL POC Glu Rug Repairer ID Lactic Ac Sepsis Rflx Plasma Lactic Acid Ywatt (0.7-2.0) mmol/L Calcium (8.4-10.2) mg/dL Magnesium (1.6-2.3) mg/dL Total Bilirubin (0.2-1.3) mg/dL AST (14-36) U/L ALT (4-34) U/L Alkaline Phosphatase (38-126) U/L Troponin I 0.013 (0.000-0.034) ng/mL NT-Pro-B Natriuret Pep 919 pg/mL Total Protein (6.3-8.2) g/dL Albumin (3.5-5.0) g/dL Lipase (23-300) U/L Urine Color [place] Urine Appearance Cloudy H (Clear) Urine pH 6.0 (5.0-8.0) Ur Specific [place] 1.032 (1.001-1.035) Urine Protein 3+ H (Negative) Urine Glucose (UA) 1+ H (Negative) Urine Ketones 3+ H (Negative) Urine Blood Trace H (Negative) Urine Nitrite Negative (Negative) Urine Bilirubin 2+ H (Negative) Urine Urobilinogen 6.0 (<2.0) mg/dL Ur Leukocyte Esterase Small H (Negative) Urine RBC 3 (0-5) /hpf Urine WBC 15 H (0-5) /hpf Ur Squamous Epith Cells 20 H (0-4) /hpf Hyaline Casts 56 H (0-2) /lpf Urine Mucus Many H (None) /hpf Serum Alcohol mg/dL Acetone, Qual (Negative) Coronavirus (PCR) (Not Detectd) Blood Type Blood Type Confirm Blood Type Recheck Bld Type Recheck Status Antibody Screen Spec Expiration Date 02/21/21 02/21/21 02/21/21 Range/Units 16:14 16:14 16:40 WBC (3.8-10.6) k/uL RBC (3.80-5.40) m/uL Hgb (11.4-16.0) gm/dL Hct (34.0-46.0) % MCV (80.0-100.0) fL MCH (25.0-35.0) pg MCHC (31.0-37.0) g/dL RDW (11.5-15.5) % Plt Count (150-450) k/uL MPV Neutrophils % % Lymphocytes % % Monocytes % % Eosinophils % % Basophils % % Neutrophils # (1.3-7.7) k/uL Lymphocytes # (1.0-4.8) k/uL Monocytes # (0-1.0) k/uL Eosinophils # (0-0.7) k/uL Basophils # (0-0.2) k/uL Macrocytosis PT (9.0-12.0) sec INR (<1.2) APTT (22.0-30.0) sec D-Dimer (<0.60) mg/L FEU Sodium (137-145) mmol/L Potassium (3.5-5.1) mmol/L Chloride (98-107) mmol/L Carbon Dioxide (22-30) mmol/L Anion Gap mmol/L BUN (7-17) mg/dL Creatinine (0.52-1.04) mg/dL Est GFR (CKD-EPI)AfAm (>60 ml/min/1.73 sqM) Est GFR (CKD-EPI)NonAf (>60 ml/min/1.73 sqM) Glucose (74-99) mg/dL POC Glucose (mg/dL) (75-99) mg/dL POC Glu Rug Repairer ID Lactic Ac Sepsis Rflx Y Plasma Lactic Acid Wyatt (0.7-2.0) mmol/L Calcium (8.4-10.2) mg/dL Magnesium (1.6-2.3) mg/dL Total Bilirubin (0.2-1.3) mg/dL AST (14-36) U/L ALT (4-34) U/L Alkaline Phosphatase (38-126) U/L Troponin I (0.000-0.034) ng/mL NT-Pro-B Natriuret Pep pg/mL Total Protein (6.3-8.2) g/dL Albumin (3.5-5.0) g/dL Lipase (23-300) U/L Urine Color Urine Appearance (Clear) Urine pH (5.0-8.0) Ur Specific [place] (1.001-1.035) Urine Protein (Negative) Urine Glucose (UA) (Negative) Urine Ketones (Negative) Urine Blood (Negative) Urine Nitrite (Negative) Urine Bilirubin (Negative) Urine Urobilinogen (<2.0) mg/dL Ur Leukocyte Esterase (Negative) Urine RBC (0-5) /hpf Urine WBC (0-5) /hpf Ur Squamous Epith Cells (0-4) /hpf Hyaline Casts (0-2) /lpf Urine Mucus (None) /hpf Serum Alcohol mg/dL Acetone, Qual Positive (Negative) Coronavirus (PCR) Not Detected (Not Detectd) Blood Type Blood Type Confirm Blood Type Recheck Bld Type Recheck Status Antibody Screen Spec Expiration Date 02/21/21 02/21/21 Range/Units 18:38 18:40 WBC (3.8-10.6) k/uL RBC (3.80-5.40) m/uL Hgb (11.4-16.0) gm/dL Hct (34.0-46.0) % MCV (80.0-100.0) fL MCH (25.0-35.0) pg MCHC (31.0-37.0) g/dL RDW (11.5-15.5) % Plt Count (150-450) k/uL MPV Neutrophils % % Lymphocytes % % Monocytes % % Eosinophils % % Basophils % % Neutrophils # (1.3-7.7) k/uL Lymphocytes # (1.0-4.8) k/uL Monocytes # (0-1.0) k/uL Eosinophils # (0-0.7) k/uL Basophils # (0-0.2) k/uL Macrocytosis PT (9.0-12.0) sec INR (<1.2) APTT (22.0-30.0) sec D-Dimer (<0.60) mg/L FEU Sodium (137-145) mmol/L Potassium (3.5-5.1) mmol/L Chloride (98-107) mmol/L Carbon Dioxide (22-30) mmol/L Anion Gap mmol/L BUN (7-17) mg/dL Creatinine (0.52-1.04) mg/dL Est GFR (CKD-EPI)AfAm (>60 ml/min/1.73 sqM) Est GFR (CKD-EPI)NonAf (>60 ml/min/1.73 sqM) Glucose (74-99) mg/dL POC Glucose (mg/dL) 123 H (75-99) mg/dL POC Glu Rug Repairer ID Shelia Lomeli Lactic Ac Sepsis Rflx Plasma Lactic Acid Wyatt 1.0 (0.7-2.0) mmol/L Calcium (8.4-10.2) mg/dL Magnesium (1.6-2.3) mg/dL Total Bilirubin (0.2-1.3) mg/dL AST (14-36) U/L ALT (4-34) U/L Alkaline Phosphatase (38-126) U/L Troponin I (0.000-0.034) ng/mL NT-Pro-B Natriuret Pep pg/mL Total Protein (6.3-8.2) g/dL Albumin (3.5-5.0) g/dL Lipase (23-300) U/L Urine Color Urine Appearance (Clear) Urine pH (5.0-8.0) Ur Specific [place] (1.001-1.035) Urine Protein (Negative) Urine Glucose (UA) (Negative) Urine Ketones (Negative) Urine Blood (Negative) Urine Nitrite (Negative) Urine Bilirubin (Negative) Urine Urobilinogen (<2.0) mg/dL Ur Leukocyte Esterase (Negative) Urine RBC (0-5) /hpf Urine WBC (0-5) /hpf Ur Squamous Epith Cells (0-4) /hpf Hyaline Casts (0-2) /lpf Urine Mucus (None) /hpf Serum Alcohol mg/dL Acetone, Qual (Negative) Coronavirus (PCR) (Not Detectd) Blood Type Blood Type Confirm Blood Type Recheck Bld Type Recheck Status Antibody Screen Spec Expiration Date Disposition Clinical Impression: Starvation ketoacidosis, Dehydration, Alcohol abuse Disposition: ADMITTED IP TO THIS [facility] Condition: Stable
[2021-02-21 16:11] LABS: ALT 19 U/L (4-34); AST 46 U/L (14-36); African American GFR (CKD) 74 (>60 ml/min/1.73 sqM); Alcohol <10 mg/dL; Alkaline Phosphatase 114 U/L (38-126); Anion Gap 19 mmol/L; Blood Urea Nitrogen 14 mg/dL (7-17); Calcium 9.8 mg/dL (8.4-10.2); Carbon Dioxide 18 mmol/L (22-30); Chloride 94 mmol/L (98-107); Glucose 164 mg/dL (74-99); Lipase 461 U/L (23-300); Magnesium 1.5 mg/dL (1.6-2.3); Non-African American GFR(CKD) 65 (>60 ml/min/1.73 sqM); Potassium 3.9 mmol/L (3.5-5.1); Sodium 131 mmol/L (137-145); Total Bilirubin 2.2 mg/dL (0.2-1.3)
[2021-02-21 16:12] LABS: Basophils % (A) 0 %; Eosinophils % (A) 1 %; HCT 47.1 % (34.0-46.0); HGB 16.1 gm/dL (11.4-16.0); Lymphocytes # (A) 0.8 k/uL (1.0-4.8); Lymphocytes % (A) 15 %; MCH 35.1 pg (25.0-35.0); MCHC 34.1 g/dL (31.0-37.0); MCV 102.9 fL (80.0-100.0); Macrocytosis Slight; Mean Platelet Volume 8.9; Monocytes # (A) 0.3 k/uL (0-1.0); Monocytes % (A) 5 %; Neutrophils # (A) 4.1 k/uL (1.3-7.7); Neutrophils % (A) 78 %; Platelet Count 144 k/uL (150-450); RBC 4.58 m/uL (3.80-5.40); RDW 14.4 % (11.5-15.5); WBC 5.3 k/uL (3.8-10.6)
--- NOTE | 2021-02-21 16:16 | CT ---
EXAMINATION TYPE: CT brain wo con DATE OF EXAM: 02/21/2021 COMPARISON: 09/25/2020 HISTORY: 56 year-old female head trauma, pain, injury to the right orbital rim. TECHNIQUE: Examination was done in axial plane without intravenous contrast. Coronal and sagittal r econstructions performed. CT DLP: 1099.4 mGycm Automated exposure control for dose reduction was used. FINDINGS: There is no evidence of acute intracranial hemorrhage, acute ischemic changes, mass, mass-effect, or extra-axial fluid collection. There is no effacement of cerebral sulci or basal subarachnoid cister ns. There is no hydrocephalus. There is no midline shift. Terry-white matter distinction is preserv ed. Paranasal sinuses and mastoid air cells well pneumatized. Orbits and globes are intact. No calvarial fracture. IMPRESSION: No acute intracranial abnormality seen.
[2021-02-21 16:22] LABS: Appearance,Urine Cloudy (Clear); Bilirubin,Urine 2+ (Negative); Blood,Urine Trace (Negative); Color,Urine Orange; Glucose,Urine (UA) 1+ (Negative); Hyaline Casts,Urine 56 /lpf (0-2); Leukocyte Esterase,Urine Small (Negative); Mucus,Urine Many /hpf; Nitrite,Urine Negative (Negative); Protein,Urine 3+ (Negative); RBC,Urine 3 /hpf (0-5); Specific Gravity,Urine 1.032 (1.001-1.035); Squamous Epithelial Cell,Urine 20 /hpf (0-4); WBC,Urine 15 /hpf (0-5)
[2021-02-21 16:29] LABS: Partial Thromboplastin Time 21.1 sec (22.0-30.0); Prothrombin Time 10.9 sec (9.0-12.0)
[2021-02-21 16:33] LABS: Ketones,Urine 3+ (Negative)
[2021-02-21] MEDS: MAGNESIUM SULFATE-D5W PMX 1 GM in DEXTROSE/WATER 1 100ML.BAG IVPB SCH ×2 (17:21→18:28)
--- NOTE | 2021-02-21 18:06 | US ---
EXAMINATION TYPE: US abdomen limited DATE OF EXAM: 02/21/2021 COMPARISON: NONE CLINICAL HISTORY: Elevated lipase/bilirubin. Elevated liver enzymes EXAM MEASUREMENTS: Liver Length: 10.7 cm Gallbladder Wall: 0.3 cm CBD: 0.4 cm Right Kidney: 9.2 x 4.2 x 4.5 cm technical limitations due to large amount of overlying bowel content Pancreas: Obscured by bowel gas Liver: Hyperechoic, coarsened echotexture with poor posterior beam penetration Gallbladder: no evidence of cholelithiasis, wall thickening, or pericholecystic edema. Asphalt Spreader reports a negative sonographic Cabrera sign. CBD: Normal. Right Kidney: Normal. IMPRESSION: Fatty liver.
[2021-02-21] MEDS: SODIUM CHLORIDE 0.9% 1,000 ML IV SCH (18:28)
[2021-02-21 18:42] LABS: Glucose,Whole Blood 123 mg/dL (75-99)
[2021-02-21] MEDS ORDERED: THIAMINE 100 MG/ML 2 ML VIAL IM STA (18:53)
[2021-02-21] MEDS ORDERED: NALOXONE 0.4 MG/ML 1 ML VIAL IV PRN (18:53)
[2021-02-21] MEDS ORDERED: LORazepam 2 MG/ML INJ IV PRN ×3 (18:53)
[2021-02-21 19:23] LABS: ALT 15 U/L (4-34); AST 36 U/L (14-36); African American GFR (CKD) >90 (>60 ml/min/1.73 sqM); Albumin 4.1 g/dL (3.5-5.0); Alkaline Phosphatase 96 U/L (38-126); Anion Gap 11 mmol/L; Blood Urea Nitrogen 13 mg/dL (7-17); Calcium 8.8 mg/dL (8.4-10.2); Carbon Dioxide 19 mmol/L (22-30); Chloride 98 mmol/L (98-107); Glucose 128 mg/dL (74-99); Non-African American GFR(CKD) >90 (>60 ml/min/1.73 sqM); Potassium 3.6 mmol/L (3.5-5.1); Sodium 128 mmol/L (137-145); Total Bilirubin 1.5 mg/dL (0.2-1.3); Total Protein 6.8 g/dL (6.3-8.2)
--- NOTE | 2021-02-21 19:32 | CT ---
EXAMINATION TYPE: CT angio chest DATE OF EXAM: 02/21/2021 6:02 PM COMPARISON: None HISTORY: SOB, elevated d-dimer CT DLP: 262.5 mGycm Automated exposure control for dose reduction was used. CONTRAST: CTA scan of the thorax is performed with IV Contrast, patient injected with 100 mL of Isovue 370, pul monary embolism protocol. . FINDINGS: LUNGS: The lungs are grossly clear, there is no concerning parenchymal mass or nodule identified. T here is no pleural effusion or pneumothorax seen. The tracheobronchial tree is patent. MEDIASTINUM: There is satisfactory enhancement of the pulmonary artery and its branches, there is no CT evidence for pulmonary embolism. There are no greater than 1 cm hilar or mediastinal lymph nodes. No pericardial effusion is seen. Cardiac size normal. Thoracic aorta normal in caliber. OTHER: No additional significant abnormality is seen. IMPRESSION: NO EVIDENCE OF PULMONARY EMBOLISM. NO ACUTE CARDIOPULMONARY PROCESS.
--- NOTE | 2021-02-21 19:35 | XR ---
EXAMINATION TYPE: XR chest 2V DATE OF EXAM: 02/21/2021 CLINICAL HISTORY: sob. TECHNIQUE: Frontal and lateral view of the chest. COMPARISON: 09/25/2020 FINDINGS: The cardiomediastinal silhouette is within normal limits for size. Pulmonary vasculature i s normal. There is no focal air space opacity. No pleural effusion. No pneumothorax seen. No acute d isplaced osseous fracture. IMPRESSION: No acute cardiopulmonary process.
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
[2021-02-22] MEDS: SODIUM CHLORIDE 0.9% 1,000 ML IV SCH ×2 (05:29→09:09)
[2021-02-22 06:17] LABS: Basophils % (A) 0 %; Eosinophils # (A) 0.1 k/uL (0-0.7); Eosinophils % (A) 2 %; HCT 39.7 % (34.0-46.0); HGB 13.4 gm/dL (11.4-16.0); Lymphocytes # (A) 0.9 k/uL (1.0-4.8); Lymphocytes % (A) 29 %; MCH 34.8 pg (25.0-35.0); MCHC 33.6 g/dL (31.0-37.0); MCV 103.6 fL (80.0-100.0); Macrocytosis Slight; Mean Platelet Volume 8.4; Monocytes # (A) 0.2 k/uL (0-1.0); Monocytes % (A) 7 %; Neutrophils # (A) 1.8 k/uL (1.3-7.7); Neutrophils % (A) 59 %; Platelet Count 101 k/uL (150-450); RBC 3.83 m/uL (3.80-5.40); RDW 14.5 % (11.5-15.5)
[2021-02-22] MEDS: HEPARIN SODIUM,PORCINE/PF 5,000 UNIT/0.5 ML SYRINGE SQ SCH ×3 (09:08→19:52)
[2021-02-22] MEDS: PANTOPRAZOLE 40 MG TABLET PO SCH (09:08)
[2021-02-22] MEDS: THIAMINE 100 MG TAB PO SCH ×2 (09:08→17:22)
[2021-02-22 09:47] LABS: African American GFR (CKD) 96.2 (60.0-200.0); Anion Gap 9.5 mmol/L (4.00-12.00); Calcium 8.2 mg/dL (8.7-10.3); Carbon Dioxide 22.5 mmol/L (21.6-31.8); Magnesium 1.8 mg/dL (1.5-2.4); Potassium 3.7 mmol/L (3.5-5.5)
--- NOTE | 2021-02-22 15:04 | P.PN ---
Subjective Progress Note Date: 02/22/21 Patient was seen and evaluated this morning. She denies any dizziness or lightheadedness. No acute events overnight reported by nursing staff. Objective - Vital Signs Vital signs: Vital Signs Temp 98.9 F 02/22/21 12:11 Pulse 96 02/22/21 12:11 Resp 17 02/22/21 12:11 BP 142/96 02/22/21 13:25 Pulse Ox 99 02/22/21 12:11 Intake & Output 02/21/21 02/22/21 02/22/21 18:59 06:59 18:59 Weight 68.039 kg 68.039 kg Other: Voiding Method Toilet Toilet # Voids 2 - Exam General: The patient is awake and alert, in no distress Eye: there is normal conjunctiva bilaterally. Neck: The neck is supple, there is no JVD. Cardiovascular: Normal S1-S2, no S3-S4, no murmurs. Respiratory: Lungs clear to auscultation bilaterally Gastrointestinal: Abdomen is soft, nontender Musculoskeletal: There is no pedal edema. Neurological:. Speech is normal. Skin: Skin is warm and dry - Labs CBC & Chem 7: 02/22/21 04:49 02/22/21 04:49 Labs: Abnormal Lab Results - Last 24 Hours (Table) 02/21/21 02/21/21 02/21/21 Range/Units 15:46 15:46 15:46 WBC (3.8-10.6) k/uL Hgb 16.1 H (11.4-16.0) gm/dL Hct 47.1 H (34.0-46.0) % MCV 102.9 H (80.0-100.0) fL MCH 35.1 H (25.0-35.0) pg Plt Count 144 L (150-450) k/uL Lymphocytes # 0.8 L (1.0-4.8) k/uL APTT 21.1 L (22.0-30.0) sec D-Dimer 0.96 H (<0.60) mg/L FEU Sodium 131 L (137-145) mmol/L Chloride 94 L (98-107) mmol/L Carbon Dioxide 18 L (22-30) mmol/L Glucose 164 H (74-99) mg/dL POC Glucose (mg/dL) (75-99) mg/dL Plasma Lactic Acid Wyatt (0.7-2.0) mmol/L Calcium (8.7-10.3) mg/dL Magnesium 1.5 L (1.6-2.3) mg/dL Total Bilirubin 2.2 H (0.2-1.3) mg/dL AST 46 H (14-36) U/L Lipase 461 H (23-300) U/L Urine Appearance (Clear) Urine Protein (Negative) Urine Glucose (UA) (Negative) Urine Ketones (Negative) Urine Blood (Negative) Urine Bilirubin (Negative) Ur Leukocyte Esterase (Negative) Urine WBC (0-5) /hpf Ur Squamous Epith Cells (0-4) /hpf Hyaline Casts (0-2) /lpf Urine Mucus (None) /hpf 02/21/21 02/21/21 02/21/21 Range/Units 15:46 16:14 18:40 WBC (3.8-10.6) k/uL Hgb (11.4-16.0) gm/dL Hct (34.0-46.0) % MCV (80.0-100.0) fL MCH (25.0-35.0) pg Plt Count (150-450) k/uL Lymphocytes # (1.0-4.8) k/uL APTT (22.0-30.0) sec D-Dimer (<0.60) mg/L FEU Sodium (137-145) mmol/L Chloride (98-107) mmol/L Carbon Dioxide (22-30) mmol/L Glucose (74-99) mg/dL POC Glucose (mg/dL) 123 H (75-99) mg/dL Plasma Lactic Acid Wyatt 2.7 H* (0.7-2.0) mmol/L Calcium (8.7-10.3) mg/dL Magnesium (1.6-2.3) mg/dL Total Bilirubin (0.2-1.3) mg/dL AST (14-36) U/L Lipase (23-300) U/L Urine Appearance Cloudy H (Clear) Urine Protein 3+ H (Negative) Urine Glucose (UA) 1+ H (Negative) Urine Ketones 3+ H (Negative) Urine Blood Trace H (Negative) Urine Bilirubin 2+ H (Negative) Ur Leukocyte Esterase Small H (Negative) Urine WBC 15 H (0-5) /hpf Ur Squamous Epith Cells 20 H (0-4) /hpf Hyaline Casts 56 H (0-2) /lpf Urine Mucus Many H (None) /hpf 02/21/21 02/22/21 02/22/21 Range/Units 19:00 04:49 04:49 WBC 3.0 L (3.8-10.6) k/uL Hgb (11.4-16.0) gm/dL Hct (34.0-46.0) % MCV 103.6 H (80.0-100.0) fL MCH (25.0-35.0) pg Plt Count 101 L (150-450) k/uL Lymphocytes # 0.9 L (1.0-4.8) k/uL APTT (22.0-30.0) sec D-Dimer (<0.60) mg/L FEU Sodium 128 L (137-145) mmol/L Chloride (98-107) mmol/L Carbon Dioxide 19 L (22-30) mmol/L Glucose 128 H (74-99) mg/dL POC Glucose (mg/dL) (75-99) mg/dL Plasma Lactic Acid Wyatt (0.7-2.0) mmol/L Calcium 8.2 L (8.7-10.3) mg/dL Magnesium (1.6-2.3) mg/dL Total Bilirubin 1.5 H (0.2-1.3) mg/dL AST (14-36) U/L Lipase (23-300) U/L Urine Appearance (Clear) Urine Protein (Negative) Urine Glucose (UA) (Negative) Urine Ketones (Negative) Urine Blood (Negative) Urine Bilirubin (Negative) Ur Leukocyte Esterase (Negative) Urine WBC (0-5) /hpf Ur Squamous Epith Cells (0-4) /hpf Hyaline Casts (0-2) /lpf Urine Mucus (None) /hpf Microbiology - Last 24 Hours (Table) 02/21/21 16:14 Urine Culture - Preliminary Urine,Voided Assessment and Plan Assessment: this is a 56-year-old female with past medical history noted below who presented to the emergency room after having a syncopal episode. Patient was evaluated in the ER and placed on observation for further management of her medical problems noted below. 1. Syncopal episode, most likely secondary to dehydration, patient received aggressive IV fluid hydration. No events on ditch rider. CT angiogram of the chest showed no evidence of PE. Awaiting echocardiogram. Orthostatic blood pressure checked and negative after hydration. 2. Elevated blood pressure, no known history of hypertension. Patient is constantly having elevated blood pressure during this admission. I would add Norvasc 5 mg daily to her regimen and continue to monitor closely. 3. Hyponatremia and hypomagnesemia, replaced and improved with IV fluid hydration 4. Heavy alcohol use, counseled extensively to quit. 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 No evidence of withdrawal during this admission. Ativan as needed ordered.
[2021-02-22] MEDS: amLODIPine 5 MG TAB PO SCH (16:15)
[2021-02-23 04:55] VITALS: BP 106/76; PULSE 73; RESP 18; TEMP 98.3
--- NOTE | 2021-02-23 07:53 | ECHOF ---
Referral Reason:syncope MEASUREMENTS -------- HEIGHT: 157.5 cm WEIGHT: 68.0 kg BP: 142/96 RVIDd: 2.6 cm (< 3.3) IVSd: 0.9 cm (0.6 - 1.1) LVIDd: 4.5 cm (3.9 - 5.3) LVPWd: 1.0 cm (0.6 - 1.1) IVSs: 1.7 cm LVIDs: 2.9 cm LVPWs: 1.5 cm LA Diam: 2.9 cm (2.7 - 3.8) LAESV Index (A-L): 13.46 ml/m Ao Diam: 2.9 cm (2.0 - 3.7) AV Cusp: 2.1 cm (1.5 - 2.6) MV EXCURSION: 14.273 mm (> 18.000) MV EF SLOPE: 40 mm/s (70 - 150) EPSS: 0.6 cm MV E Jaiden: 0.86 m/s MV DecT: 302 ms MV A Jaiden: 0.99 m/s MV E/A Ratio: 0.87 RAP: 5.00 mmHg RVSP: 22.99 mmHg FINDINGS -------- Sinus rhythm. This was a technically good study. The left ventricular size is normal. Left ventricular wall thickness is normal. Overall left vent ricular systolic function is normal with, an EF between 60 - 65 %. The right ventricle is normal in size. Normal LA size by volume 22+/-6 ml/m2. The right atrium is normal in size. Interatrial and interventricular septum intact. The aortic valve is trileaflet, and appears structurally normal. No aortic stenosis or regurgitation. The mitral valve is normal. Mild tricuspid regurgitation present. Right ventricular systolic pressure is normal at < 35 mmHg. There is no pulmonic regurgitation present. The aortic root size is normal. Normal inferior vena cava with normal inspiratory collapse consistent with estimated right atrial pre ssure of 5 mmHg. There is no pericardial effusion. CONCLUSIONS -------- 1. The left ventricular size is normal. 2. Left ventricular wall thickness is normal. 3. Overall left ventricular systolic function is normal with, an EF between 60 - 65 %. 4. The aortic valve is trileaflet, and appears structurally normal. No aortic stenosis or regurgitati on. 5. Mild tricuspid regurgitation present. 6. There is no pericardial effusion. MANAGER SPECIALTY: Josie Fitzgerald RDCS
[2021-02-23] MEDS: HEPARIN SODIUM,PORCINE/PF 5,000 UNIT/0.5 ML SYRINGE SQ SCH (08:21)
[2021-02-23] MEDS: PANTOPRAZOLE 40 MG TABLET PO SCH (08:23)
[2021-02-23] MEDS: THIAMINE 100 MG TAB PO SCH (08:23)
[2021-02-23] MEDS: amLODIPine 5 MG TAB PO SCH (08:24)
--- NOTE | 2021-02-23 09:25 | P.DS ---
Providers Date of admission: 02/21/21 18:55 Expected date of discharge: 02/23/21 Attending physician: Edwin Silva MD Primary care physician: Stated None Hospital Course: this is a 56-year-old female with past medical history noted below who presented to the emergency room after having a syncopal episode. Patient was evaluated in the ER and placed on observation for further management of her medical problems noted below. 1. Syncopal episode, most likely secondary to dehydration, patient received aggressive IV fluid hydration. No events on monitor worker. CT angiogram of the chest showed no evidence of PE. Echocardiogram showed preserved ejection fraction with no significant valvular abnormalities. Orthostatic blood pressure checked and negative after hydration. 2. Elevated blood pressure, no known history of hypertension. Patient is constantly having elevated blood pressure during this admission. I would add Norvasc 2.5 mg daily to her regimen 3. Hyponatremia and hypomagnesemia, replaced and improved with IV fluid hydration 4. Heavy alcohol use, counseled extensively to quit. 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 No evidence of withdrawal during this admission. Ativan as needed ordered. Patient was seen and evaluated by me on the day of discharge. She denies any dizziness or lightheadedness. She is eager to go home. She was counseled to check her blood pressure 3 times a day at home for the next few days and make a log of readings to take to her primary care physician. She'll be discharged home in a stable condition. Patient Condition at Discharge: Stable Plan - Discharge Summary Discharge Rx Participant: No New Discharge Prescriptions: New amLODIPine [Norvasc] 2.5 mg PO DAILY #30 tablet Thiamine [Vitamin B-1] 100 mg PO BID-W/MEALS #30 tab Continue Multivitamins, Thera [Multivitamin (formulary)] 1 tab PO DAILY Discharge Medication List Multivitamins, Thera [Multivitamin (formulary)] 1 tab PO DAILY 02/05/20 [History] Thiamine [Vitamin B-1] 100 mg PO BID-W/MEALS #30 tab 02/23/21 [Rx] amLODIPine [Norvasc] 2.5 mg PO DAILY #30 tablet 02/23/21 [Rx] Follow up Appointment(s)/Referral(s): None,Stated [Primary Care Provider] - 1-2 days Activity/Diet/Wound Care/Special Instructions: Encourage Outpatient Substance Abuse Treatment for Alcohol Abuse Discharge Disposition: HOME SELF-CARE
== END 2021-02-23 11:42 | disposition home or self-care (01) | DRG 641 ==
LOC: EC 15:24 → 5NMEDONC 18:55
PROVIDERS: ADMIT Internal Medicine; ATTEND Internal Medicine
DX: E86.0 Dehydration (principal); E83.42 Hypomagnesemia; E87.1 Hypo-osmolality and hyponatremia; E87.2 Acidosis; F10.10 Alcohol abuse, uncomplicated; K70.0 Alcoholic fatty liver; F32.9 Major depressive disorder, single episode, unspecified; G40.909 Epilepsy, unspecified, not intractable, without status epilepticus; R00.0 Tachycardia, unspecified; G43.909 Migraine, unspecified, not intractable, without status migrainosus; T67.5XXA Heat exhaustion, unspecified, initial encounter; X30.XXXA Exposure to excessive natural heat, initial encounter; Z20.822 Contact with and (suspected) exposure to COVID-19; Z80.49 Family history of malignant neoplasm of other genital organs; Z82.49 Family history of ischemic heart disease and other diseases of the circulatory system; Z82.5 Family history of asthma and other chronic lower respiratory diseases; Z83.3 Family history of diabetes mellitus; Z71.41 Alcohol abuse counseling and surveillance of alcoholic; Z63.4 Disappearance and death of family member
CPT/HCPCS: 36415; 70450; 71046; 71275; 76705; 80048; 80053; 80320; 81001; 82009; 83605; 83690; 83735; 83880; 84484; 85025; 85379; 85610; 85730; 86850; 86900; 86901; 87086; 87635; 93005; 93306; 96361; 96365; 96366; 96375; 99285

== ENCOUNTER 2021-03-29 16:48 | Observation (INO) | payer OTHER ==
--- NOTE | 2021-03-29 17:37 | ED ---
General Adult HPI - General Chief complaint: Alcohol Stated complaint: ETOH Time Seen by Provider: 03/29/21 16:51 Source: patient, EMS, RN notes reviewed Mode of arrival: EMS Limitations: altered mental status - History of Present Illness Initial comments: Patient is a pleasant 56-year-old female presenting to the emergency department for alcohol intoxication. Patient states she has been drinking a lot frequently. Patient denies any trauma then later states that she did accidentally shut the car door on her left hand. Patient then further states that she did have a fall a day or 2 ago and did strike her head. No loss of consciousness. No significant headache. No neck or back pain. Patient denies suicidal or homicidal thoughts. - Related Data Home Medications Medication Instructions Recorded Confirmed Multivitamins, Thera [Multivitamin 1 tab PO DAILY 02/05/20 03/29/21 (formulary)] Previous Rx's Medication Instructions Recorded Thiamine [Vitamin B-1] 100 mg PO BID-W/MEALS #30 tab 02/23/21 amLODIPine [Norvasc] 2.5 mg PO DAILY #30 tablet 02/23/21 Allergies Allergy/AdvReac Type Severity Reaction Status Date / Time amoxicillin Allergy Unknown Verified 03/29/21 17:31 bee venom protein (honey bee) Allergy Unknown Verified 03/29/21 17:31 Sulfa (Sulfonamide Allergy Unknown Verified 03/29/21 17:31 Antibiotics) Review of Systems ROS Statement: Those systems with pertinent positive or pertinent negative responses have been documented in the HPI. ROS Other: All systems not noted in ROS Statement are negative. Constitutional: Denies: fever Eyes: Denies: eye pain ENT: Denies: ear pain Respiratory: Denies: cough Cardiovascular: Denies: chest pain Endocrine: Denies: fatigue Gastrointestinal: Denies: abdominal pain Genitourinary: Denies: dysuria Musculoskeletal: Reports: as per HPI. Denies: back pain Skin: Denies: rash Neurological: Denies: weakness Psychiatric: Denies: homicidal thoughts, suicidal thoughts Past Medical History Past Medical History: Liver Disease, Pneumonia, Renal Disease, Seizure Disorder Additional Past Medical History / Comment(s): Alcohol abuse with past withdrawal/tremors/nausea, bronchitis, UTI, renal insufficiency, growth on liver-unable to biopsy d/t too close to her spine, IBS, migraines. History of Any Multi-Drug Resistant Organisms: None Reported Past Surgical History: Tonsillectomy, Tubal Ligation Past Anesthesia/Blood Transfusion Reactions: No Reported Reaction Additional Past Anesthesia/Blood Transfusion Reaction / Comment(s): patient states it takes her a long time to come out of anesthesia Past Psychological History: Depression Smoking Status: Never smoker Past Alcohol Use History: None Reported Past Drug Use History: None Reported - Past Family History Mother Family Medical History: Asthma, Cancer, COPD, Diabetes Mellitus, Hyperlipidemia, Hypertension Additional Family Medical History / Comment(s): Cervical cancer. Father History Unknown: Yes Family Medical History: Unable to Obtain Additional Family Medical History / Comment(s): Pt does not know her father. General Exam Limitations: altered mental status General appearance: alert, in no apparent distress Head exam: Present: atraumatic, normocephalic Eye exam: Present: normal appearance, PERRL, EOMI, nystagmus ENT exam: Present: normal oropharynx Neck exam: Present: normal inspection. Absent: tenderness Respiratory exam: Present: normal lung sounds bilaterally Cardiovascular Exam: Present: regular rate, normal rhythm GI/Abdominal exam: Present: soft. Absent: tenderness Extremities exam: Present: normal inspection, full ROM. Absent: tenderness Neurological exam: Present: alert, CN II-XII intact. Absent: motor sensory deficit Expanded Eye Response: (4) open spontaneously Motor Response: (6) obeys commands Verbal Response: (5) oriented Psychiatric exam: Present: normal affect, normal mood Skin exam: Present: normal color Course Vital Signs 03/29/21 17:04 Temperature 98.2 F Pulse Rate 90 Respiratory 20 Rate Blood Pressure 126/93 O2 Sat by Pulse 96 Oximetry Medical Decision Making - Medical Decision Making Patient was reevaluated. Case was discussed with practitioner Lima, covering with Dr. Anthony, who will admit for hospital call. - Lab Data Result diagrams: 03/29/21 17:43 03/29/21 17:43 Lab Results 03/29/21 03/29/21 03/29/21 Range/Units 17:43 17:43 17:43 WBC 3.5 L (3.8-10.6) k/uL RBC 4.26 (3.80-5.40) m/uL Hgb 7.9 L D (11.4-16.0) gm/dL Hct 45.1 (34.0-46.0) % MCV 105.9 H (80.0-100.0) fL MCH 18.5 L (25.0-35.0) pg MCHC 17.4 L (31.0-37.0) g/dL RDW 14.1 (11.5-15.5) % Plt Count 147 L (150-450) k/uL MPV 7.7 Neutrophils % 55 % Lymphocytes % 37 % Monocytes % 3 % Eosinophils % 3 % Basophils % 1 % Neutrophils # 1.9 (1.3-7.7) k/uL Lymphocytes # 1.3 (1.0-4.8) k/uL Monocytes # 0.1 (0-1.0) k/uL Eosinophils # 0.1 (0-0.7) k/uL Basophils # 0.0 (0-0.2) k/uL Macrocytosis Moderate PT 11.0 (9.0-12.0) sec INR 1.0 (<1.2) Sodium 146 H (137-145) mmol/L Potassium 4.1 (3.5-5.1) mmol/L Chloride 109 H (98-107) mmol/L Carbon Dioxide 23 (22-30) mmol/L Anion Gap 14 mmol/L BUN 11 (7-17) mg/dL Creatinine 0.62 (0.52-1.04) mg/dL Est GFR (CKD-EPI)AfAm >90 (>60 ml/min/1.73 sqM) Est GFR (CKD-EPI)NonAf >90 (>60 ml/min/1.73 sqM) Glucose 97 (74-99) mg/dL Calcium 9.0 (8.4-10.2) mg/dL Serum Alcohol 444 H* mg/dL - Radiology Data Radiology results: report reviewed (Computed tomography scan of brain and c ervical spine reveals no acute process), image reviewed (X-ray left hand shows no acute process.) Disposition Clinical Impression: Alcoholic intoxication Disposition: ADMITTED IP TO THIS HOSP Is patient prescribed a controlled substance at d/c from ED?: No Referrals: None,Stated [Primary Care Provider] - 1-2 days Decision Time: 18:55
[2021-03-29 17:49] LABS: Basophils % (A) 1 %; Eosinophils # (A) 0.1 k/uL (0-0.7); Eosinophils % (A) 3 %; HCT 45.1 % (34.0-46.0); Lymphocytes # (A) 1.3 k/uL (1.0-4.8); Lymphocytes % (A) 37 %; MCH 18.5 pg (25.0-35.0); MCV 105.9 fL (80.0-100.0); Macrocytosis Moderate; Mean Platelet Volume 7.7; Monocytes # (A) 0.1 k/uL (0-1.0); Monocytes % (A) 3 %; Neutrophils # (A) 1.9 k/uL (1.3-7.7); Neutrophils % (A) 55 %; Platelet Count 147 k/uL (150-450); RBC 4.26 m/uL (3.80-5.40); RDW 14.1 % (11.5-15.5); WBC 3.5 k/uL (3.8-10.6)
[2021-03-29 17:51] LABS: HGB 7.9 gm/dL (11.4-16.0); MCHC 17.4 g/dL (31.0-37.0)
[2021-03-29 17:58] LABS: African American GFR (CKD) >90 (>60 ml/min/1.73 sqM); Anion Gap 14 mmol/L; Blood Urea Nitrogen 11 mg/dL (7-17); Carbon Dioxide 23 mmol/L (22-30); Chloride 109 mmol/L (98-107); Glucose 97 mg/dL (74-99); Non-African American GFR(CKD) >90 (>60 ml/min/1.73 sqM); Potassium 4.1 mmol/L (3.5-5.1); Sodium 146 mmol/L (137-145)
[2021-03-29 18:07] LABS: Alcohol 444 mg/dL
--- NOTE | 2021-03-29 18:48 | CT ---
EXAMINATION TYPE: CT brain momoine wo con DATE OF EXAM: 03/29/2021 COMPARISON: 02/21/2021 HISTORY: Fall 2 days ago[address] Visual disturbance. CT DLP: 1345.6 mGycm Automated exposure control for dose reduction was used. TECHNIQUE: CT scan of the head and cervical spine are performed without contrast. FINDINGS: There is no acute intracranial hemorrhage, mass effect, or midline shift identified. The ventricles and sulci are within normal limits in size. The globes are intact and the visualized sin uses are clear. Cervical spine is visualized in its entirety from C1 through upper thoracic levels and demonstrates s atisfactory alignment without evidence of acute fracture or dislocation. Prevertebral soft tissue ap pears within normal limits. The C1-C2 articulation is unremarkable. IMPRESSION: 1. There is no acute fracture or dislocation evident in the cervical spine. 2. No acute intracranial hemorrhage, mass effect, or midline shift is seen.
--- NOTE | 2021-03-29 18:50 | XR ---
PROCEDURE: XR hand complete LT - 3V DATE AND TIME: 03/29/2021 5:56 PM CLINICAL INDICATION: PHH; trauma, pain TECHNIQUE: Department protocol COMPARISON: None FINDINGS: There is no fracture or malalignment. There are multifocal advanced osteoarthrosis changes, most advanced at the first CHCF articulation. The soft tissues are unremarkable. IMPRESSION: NO ACUTE PROCESS.
[2021-03-29] MEDS ORDERED: LORazepam 2 MG/ML INJ IV PRN ×3 (18:55)
[2021-03-29] MEDS ORDERED: THIAMINE 100 MG/ML 2 ML VIAL IM STA (18:55)
[2021-03-29] MEDS ORDERED: NALOXONE 0.4 MG/ML 1 ML VIAL IV PRN (18:55)
[2021-03-29] MEDS: SODIUM CHLORIDE 0.9% 1,000 ML IV SCH (21:35)
[2021-03-29] MEDS: LORazepam 2 MG/ML INJ IV PRN (21:35)
[2021-03-29 23:13] VITALS: RESP 16
[2021-03-30] MEDS: LORazepam 2 MG/ML INJ IV PRN (05:23)
[2021-03-30] MEDS ORDERED: THIAMINE 100 MG TAB PO SCH (07:30)
[2021-03-30] MEDS ORDERED: MULTIVITAMINS, THERA 1 EACH TAB PO SCH (09:00)
[2021-03-30 09:27] VITALS: BP 118/74; PULSE 96; TEMP 98.7
[2021-03-30] MEDS ORDERED: DEXTROSE 5%-0.45% NACL 1,000 ML IV SCH (10:30)
[2021-03-30] MEDS ORDERED: FAMOTIDINE 20 MG TAB PO SCH (10:30)
[2021-03-30] MEDS ORDERED: LORazepam 1 MG TAB PO STA (10:44)
--- NOTE | 2021-03-30 10:57 | P.HPIM ---
History of Present Illness Patient is a pleasant 56-year-old female came in after alcohol intoxication. Patient has been drinking a lot lately. She says she drinks about pint of alcohol daily. Patient lost her about 3 months ago because of which is depressed and anxious. Patient's mother who she used to live with his now in [facility]dc. Patient has been under a lot of stress depressed but denied any suicidal ideations. Patient is having some shaking mostly because of anxiety rather than all call withdrawal patient last drink was last night came in with a serum alcohol level of 444. Patient denied any abdominal pain. Patient is requesting to go home as she need to take care of her dogs. I did senior genetic counselor him at length but still insists on going home. Patient will be given prescription for citalopram which will not work if she can use to drink alcohol, patient agrees to quit alcohol. Patient will be given prescription for weaning doses of Librium. Patient blood pressure is low-normal patient is on 2.5 mg of amlodipine which were discontinued. REVIEW OF SYSTEMS: CONSTITUTIONAL: No fever, no malaise, no fatigue. HEENT: No recent visual problems or hearing problems. Denied any sore throat. CARDIOVASCULAR: No chest pain, orthopnea, PND, no palpitations, no syncope. PULMONARY: No shortness of breath, no cough, no hemoptysis. GASTROINTESTINAL: No diarrhea, no nausea, no vomiting, no abdominal pain. NEUROLOGICAL: No headaches, no weakness, no numbness. HEMATOLOGICAL: Denies any bleeding or petechiae. GENITOURINARY: Denies any burning micturition, frequency, or urgency. MUSCULOSKELETAL/RHEUMATOLOGICAL: Denies any joint pain, swelling, or any muscle pain. ENDOCRINE: Denies any polyuria or polydipsia. The rest of the 14-point review of systems is negative. PHYSICAL EXAMINATION: GENERAL: The patient is alert and oriented x3, not in any acute distress. Well developed, well nourished. Is bit anxious and shaking HEENT: Pupils are round and equally reacting to light. EOMI. No scleral icterus. No conjunctival pallor. Normocephalic, atraumatic. No pharyngeal erythema. No thyromegaly. CARDIOVASCULAR: S1 and S2 present. No murmurs, rubs, or gallops. PULMONARY: Chest is clear to auscultation, no wheezing or crackles. ABDOMEN: Soft, nontender, nondistended, normoactive bowel sounds. No palpable organomegaly. MUSCULOSKELETAL: No joint swelling or deformity. EXTREMITIES: No cyanosis, clubbing, or pedal edema. NEUROLOGICAL: Gross neurological examination did not reveal any focal deficits. SKIN: No rashes. Assessment and plan -Alcohol intoxication:: Counseling was provided. 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 History of Any Multi-Drug Resistant Organisms: None Reported Past Surgical History: Tonsillectomy, Tubal Ligation Past Anesthesia/Blood Transfusion Reactions: No Reported Reaction Additional Past Anesthesia/Blood Transfusion Reaction / Comment(s): patient states it takes her a long time to come out of anesthesia Past Psychological History: Depression Additional Psychological History / Comment(s): Pt resides with her spouse and her mother. She uses a walker at times. 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 Smoking Status: Never smoker Past Alcohol Use History: None Reported Additional Past Alcohol Use History / Comment(s): Pt states she drinks a pint of liqour a day Past Drug Use History: None Reported - Past Family History Mother Family Medical History: Asthma, Cancer, COPD, Diabetes Mellitus, Hyperlipidemia, Hypertension Additional Family Medical History / Comment(s): Cervical cancer. Father History Unknown: Yes Family Medical History: Unable to Obtain Additional Family Medical History / Comment(s): Pt does not know her father. Medications and Allergies Home Medications Medication Instructions Recorded Confirmed Type Multivitamins, Thera [Multivitamin 1 tab PO DAILY 02/05/20 03/29/21 History (formulary)] Citalopram Hydrobromide 10 mg PO DAILY #30 tablet 03/30/21 Rx [Citalopram HBr] Thiamine [Vitamin B-1] 100 mg PO BID-W/MEALS #30 tab 03/30/21 Rx Allergies Allergy/AdvReac Type Severity Reaction Status Date / Time amoxicillin Allergy Unknown Verified 03/29/21 17:31 bee venom protein (honey bee) Allergy Unknown Verified 03/29/21 17:31 Sulfa (Sulfonamide Allergy Unknown Verified 03/29/21 17:31 Antibiotics) Physical Exam Vitals: Vital Signs Temp Pulse Pulse Resp BP BP Pulse Ox 03/30/21 07:00 98.7 F 96 16 118/74 96 03/30/21 02:00 97.7 F 92 119/82 96 03/29/21 20:21 98.2 F 91 16 104/76 96 03/29/21 17:04 98.2 F 90 20 126/93 96 Intake and Output 03/29/21 03/30/21 03/30/21 22:59 06:59 14:59 Intake Total 450 Output Total 400 Balance 50 Intake: Oral 450 Output: Urine 400 Other: Voiding Method Toilet Toilet Toilet # Voids 3 1 Weight 56.699 kg Results CBC & Chem 7: 03/29/21 17:43 03/29/21 17:43 Labs: Abnormal Lab Results - Last 24 Hours (Table) 03/29/21 03/29/21 Range/Units 17:43 17:43 WBC 3.5 L (3.8-10.6) k/uL Hgb 7.9 L D (11.4-16.0) gm/dL MCV 105.9 H (80.0-100.0) fL MCH 18.5 L (25.0-35.0) pg MCHC 17.4 L (31.0-37.0) g/dL Plt Count 147 L (150-450) k/uL Sodium 146 H (137-145) mmol/L Chloride 109 H (98-107) mmol/L Serum Alcohol 444 H* mg/dL Thrombosis Risk Factor Assmnt - Choose All That Apply Each Factor Represents 1 point: Age 41-60 years Thrombosis Risk Factor Assessment Total Risk Factor Score: 1 Thrombosis Risk Factor Assessment Level: Low Risk
[2021-03-30] MEDS: SODIUM CHLORIDE 0.9% 1,000 ML IV SCH (11:06)
[2021-03-31] MEDS ORDERED: MULTIVITAMINS, THERA 1 EACH TAB PO SCH (09:00)
--- NOTE | 2021-04-05 11:22 | P.DS ---
Providers Date of admission: 03/29/21 18:55 Attending physician: Tracy Anthony Primary care physician: Stated None Hospital Course: Patient was discharged on the same day of admission please refer to HPI for further details Plan - Discharge Summary New Discharge Prescriptions: New Citalopram Hydrobromide [Citalopram HBr] 10 mg PO DAILY #30 tablet Continue Multivitamins, Thera [Multivitamin (formulary)] 1 tab PO DAILY Thiamine [Vitamin B-1] 100 mg PO BID-W/MEALS #30 tab Discontinued amLODIPine [Norvasc] 2.5 mg PO DAILY #30 tablet Discharge Medication List Multivitamins, Thera [Multivitamin (formulary)] 1 tab PO DAILY 02/05/20 [History] Citalopram Hydrobromide [Citalopram HBr] 10 mg PO DAILY #30 tablet 03/30/21 [Rx] Thiamine [Vitamin B-1] 100 mg PO BID-W/MEALS #30 tab 03/30/21 [Rx] Follow up Appointment(s)/Referral(s): Cathy Esparza MD [REFERRING] - [address] [facility] [NON-STAFF] - 1 Week Discharge Disposition: HOME SELF-CARE
== END 2021-03-30 12:29 | disposition home or self-care (01) ==
LOC: EC 16:48 → 6NMEDSUR 18:55
PROVIDERS: ADMIT Internal Medicine; ATTEND Internal Medicine
DX: F10.229 Alcohol dependence with intoxication, unspecified (principal); F10.239 Alcohol dependence with withdrawal, unspecified; Y90.8 Blood alcohol level of 240 mg/100 ml or more; D53.9 Nutritional anemia, unspecified; D61.818 Other pancytopenia; Z71.41 Alcohol abuse counseling and surveillance of alcoholic; Z20.822 Contact with and (suspected) exposure to COVID-19; F32.9 Major depressive disorder, single episode, unspecified; F41.9 Anxiety disorder, unspecified; N28.9 Disorder of kidney and ureter, unspecified; K76.9 Liver disease, unspecified; K58.9 Irritable bowel syndrome, unspecified; G40.909 Epilepsy, unspecified, not intractable, without status epilepticus; Z79.899 Other long term (current) drug therapy; Z88.0 Allergy status to penicillin; Z88.2 Allergy status to sulfonamides; Z91.030 Bee allergy status; Z87.01 Personal history of pneumonia (recurrent); Z87.440 Personal history of urinary (tract) infections; Z98.51 Tubal ligation status; Z86.69 Personal history of other diseases of the nervous system and sense organs; Z82.49 Family history of ischemic heart disease and other diseases of the circulatory system; Z80.49 Family history of malignant neoplasm of other genital organs; Z82.5 Family history of asthma and other chronic lower respiratory diseases; Z83.3 Family history of diabetes mellitus
CPT/HCPCS: 99285; 96376; 96372; 96374; 82075; 36415; 80048; 85025; 85610; 87635; 73130; 72125; 70450; G0378 ×2; G0480; J2060 ×2; J3411; 80320

== ENCOUNTER 2021-05-01 12:45 | Inpatient (IN) | payer OTHER ==
[2021-05-01] MEDS ORDERED: SODIUM CHLORIDE 0.9% 2,000 ML IV ONE (13:05)
--- NOTE | 2021-05-01 13:19 | ED ---
General Adult HPI - General Chief complaint: Psychiatric Symptoms Stated complaint: ETOH Time Seen by Provider: 05/01/21 12:50 Source: patient, EMS, RN notes reviewed, old records reviewed Mode of arrival: ambulatory Limitations: no limitations - History of Present Illness Initial comments: This is a 56-year-old female presents emergency department highly intoxicated. Mother states she was at home and she drank but she doesn't how much and the patient was unable to stand so ambulance was called. Mom states the patient had no complaints no injury and is not suicidal or homicidal. I spoke with the patient she agrees she has no complaints other than she is upset that she drank again. Patient did not indicate how much she drank but she is a daily drinker. Patient denied any injury patient denies suicidal homicidal ideations. - Related Data Home Medications Medication Instructions Recorded Confirmed Multivitamins, Thera [Multivitamin 1 tab PO DAILY 02/05/20 05/01/21 (formulary)] Previous Rx's Medication Instructions Recorded Citalopram Hydrobromide 10 mg PO DAILY #30 tablet 03/30/21 [Citalopram HBr] Thiamine [Vitamin B-1] 100 mg PO BID-W/MEALS #30 tab 03/30/21 Allergies Allergy/AdvReac Type Severity Reaction Status Date / Time amoxicillin Allergy Unknown Verified 05/01/21 13:55 bee venom protein (honey bee) Allergy Unknown Verified 05/01/21 13:55 Sulfa (Sulfonamide Allergy Unknown Verified 05/01/21 13:55 Antibiotics) Review of Systems ROS Statement: Those systems with pertinent positive or pertinent negative responses have been documented in the HPI. ROS Other: All systems not noted in ROS Statement are negative. Past Medical History Past Medical History: Liver Disease, Pneumonia, Renal Disease, Seizure Disorder Additional Past Medical History / Comment(s): Alcohol abuse with past withdrawal/tremors/nausea, bronchitis, UTI, renal insufficiency, growth on liver -unable to biopsy d/t too close to her spine, IBS, migraines. History of Any Multi-Drug Resistant Organisms: None Reported Past Surgical History: Tonsillectomy, Tubal Ligation Past Anesthesia/Blood Transfusion Reactions: No Reported Reaction Additional Past Anesthesia/Blood Transfusion Reaction / Comment(s): patient states it takes her a long time to come out of anesthesia Past Psychological History: Depression Smoking Status: Never smoker Past Alcohol Use History: Heavy Past Drug Use History: None Reported - Past Family History Mother Family Medical History: Asthma, Cancer, COPD, Diabetes Mellitus, Hyperlipidemia, Hypertension Additional Family Medical History / Comment(s): Cervical cancer. Father History Unknown: Yes Family Medical History: Unable to Obtain Additional Family Medical History / Comment(s): Pt does not know her father. General Exam - General Exam Comments Initial Comments: GENERAL: Patient is well-developed and well-nourished. Patient is nontoxic and well- hydrated and is in no acute distress. Patient appears very intoxicated ENT: Neck is soft and supple. No significant lymphadenopathy is noted. Oropharynx is clear. Moist mucous membranes. Neck has full range of motion without eliciting any pain. EYES: The sclera were anicteric and conjunctiva were pink and moist. Extraocular movements were intact and pupils were equal round and reactive to light. Eyelids were unremarkable. PULMONARY: Unlabored respirations. Good breath sounds bilaterally. No audible rales rhonchi or wheezing was noted. CARDIOVASCULAR: There is a regular rate and rhythm without any murmurs gallops or rubs. ABDOMEN: Soft and nontender with normal bowel sounds. SKIN: Skin is clear with no lesions or rashes and otherwise unremarkable. NEUROLOGIC: Patient is alert and oriented x3. Cranial nerves II through XII are grossly intact. Motor and sensory are also intact. Normal speech, volume and content. Symmetrical smile. MUSCULOSKELETAL: Normal extremities with adequate strength and full range of motion. LYMPHATICS: No significant lymphadenopathy is noted PSYCHIATRIC: Normal psychiatric evaluation. Patient denies suicidal homicidal ideations Limitations: no limitations Course Vital Signs 05/01/21 05/01/21 05/01/21 12:50 14:30 15:12 Temperature 97.8 F Pulse Rate 71 78 74 Respiratory 20 20 20 Rate Blood Pressure 104/80 112/78 90/58 O2 Sat by Pulse 95 98 95 Oximetry Medical Decision Making - Medical Decision Making Nursing indicated to me that family had stated earlier in the day the patient was stating she was suicidal. When I went back into the room I again spoke to t he mother and she did agree that the patient was making those statements and she had no explanation for why she did not mention to me earlier that this was occurring. [facility] and psychiatric evaluation. - Lab Data Result diagrams: 05/01/21 13:20 05/01/21 13:20 Lab Results 05/01/21 05/01/21 05/01/21 Range/Units 13:20 13:20 13:20 WBC 5.1 (3.8-10.6) k/uL RBC 4.24 (3.80-5.40) m/uL Hgb 15.0 D (11.4-16.0) gm/dL Hct 45.3 (34.0-46.0) % MCV 106.8 H (80.0-100.0) fL MCH 35.3 H (25.0-35.0) pg MCHC 33.0 (31.0-37.0) g/dL RDW 13.1 (11.5-15.5) % Plt Count 341 D (150-450) k/uL MPV 7.4 Neutrophils % 50 % Lymphocytes % 42 % Monocytes % 3 % Eosinophils % 2 % Basophils % 1 % Neutrophils # 2.5 (1.3-7.7) k/uL Lymphocytes # 2.1 (1.0-4.8) k/uL Monocytes # 0.2 (0-1.0) k/uL Eosinophils # 0.1 (0-0.7) k/uL Basophils # 0.0 (0-0.2) k/uL Macrocytosis Moderate Sodium 147 H (137-145) mmol/L Potassium 4.5 (3.5-5.1) mmol/L Chloride 112 H (98-107) mmol/L Carbon Dioxide 21 L (22-30) mmol/L Anion Gap 14 mmol/L BUN 11 (7-17) mg/dL Creatinine 0.60 (0.52-1.04) mg/dL Est GFR (CKD-EPI)AfAm >90 (>60 ml/min/1.73 sqM) Est GFR (CKD-EPI)NonAf >90 (>60 ml/min/1.73 sqM) Glucose 87 (74-99) mg/dL Calcium 9.4 (8.4-10.2) mg/dL Magnesium 1.8 (1.6-2.3) mg/dL Total Bilirubin 0.3 (0.2-1.3) mg/dL AST 32 (14-36) U/L ALT 17 (4-34) U/L Alkaline Phosphatase 105 (38-126) U/L Total Protein 7.9 (6.3-8.2) g/dL Albumin 4.7 (3.5-5.0) g/dL Urine Opiates Screen Not Detected (NotDetected) Ur Oxycodone Screen Not Detected (NotDetected) Urine Methadone Screen Not Detected (NotDetected) Ur Propoxyphene Screen Not Detected (NotDetected) Ur Barbiturates Screen Not Detected (NotDetected) U Tricyclic Antidepress Not Detected (NotDetected) Ur Phencyclidine Scrn Not Detected (NotDetected) Ur Amphetamines Screen Not Detected (NotDetected) U Methamphetamines Scrn Not Detected (NotDetected) U Benzodiazepines Scrn Detected H (NotDetected) Urine Cocaine Screen Not Detected (NotDetected) U Marijuana (THC) Screen Not Detected (NotDetected) Serum Alcohol 493 H* mg/dL Disposition Clinical Impression: Alcohol intoxication, Suicidal ideation Disposition: ADMITTED IP TO THIS HOSP Referrals: None,Stated [Primary Care Provider] - 1-2 days Time of Disposition: 15:36
[2021-05-01 13:56] LABS: Basophils % (A) 1 %; Eosinophils # (A) 0.1 k/uL (0-0.7); Eosinophils % (A) 2 %; HCT 45.3 % (34.0-46.0); Lymphocytes # (A) 2.1 k/uL (1.0-4.8); Lymphocytes % (A) 42 %; MCH 35.3 pg (25.0-35.0); MCV 106.8 fL (80.0-100.0); Macrocytosis Moderate; Mean Platelet Volume 7.4; Monocytes # (A) 0.2 k/uL (0-1.0); Monocytes % (A) 3 %; Neutrophils # (A) 2.5 k/uL (1.3-7.7); Neutrophils % (A) 50 %; RBC 4.24 m/uL (3.80-5.40); RDW 13.1 % (11.5-15.5); WBC 5.1 k/uL (3.8-10.6)
[2021-05-01 14:07] LABS: Platelet Count 341 k/uL (150-450)
[2021-05-01 14:15] LABS: Amphetamine Screen,Urine Not Detected (NotDetected); Barbiturate Screen,Urine Not Detected (NotDetected); Benzodiazepines Screen,Urine Detected (NotDetected); Cocaine Screen,Urine Not Detected (NotDetected); Methadone Screen, Urine Not Detected (NotDetected); Opiate Screen,Urine Not Detected (NotDetected); Oxycodone Screen, Urine Not Detected (NotDetected); Phencyclidine Screen,Urine Not Detected (NotDetected); Tricyclic Antidepressant,Urine Not Detected (NotDetected); Urn Cannabinoid Scrn Not Detected (NotDetected)
[2021-05-01 14:16] LABS: Potassium 4.5 mmol/L (3.5-5.1)
[2021-05-01 14:17] LABS: ALT 17 U/L (4-34); AST 32 U/L (14-36); African American GFR (CKD) >90 (>60 ml/min/1.73 sqM); Albumin 4.7 g/dL (3.5-5.0); Alkaline Phosphatase 105 U/L (38-126); Anion Gap 14 mmol/L; Blood Urea Nitrogen 11 mg/dL (7-17); Calcium 9.4 mg/dL (8.4-10.2); Carbon Dioxide 21 mmol/L (22-30); Chloride 112 mmol/L (98-107); Glucose 87 mg/dL (74-99); Magnesium 1.8 mg/dL (1.6-2.3); Non-African American GFR(CKD) >90 (>60 ml/min/1.73 sqM); Sodium 147 mmol/L (137-145); Total Bilirubin 0.3 mg/dL (0.2-1.3); Total Protein 7.9 g/dL (6.3-8.2)
[2021-05-01 14:36] LABS: Alcohol 493 mg/dL
[2021-05-01] MEDS ORDERED: THIAMINE 100 MG/ML 2 ML VIAL IM STA (15:36)
[2021-05-01] MEDS ORDERED: LORazepam 2 MG/ML INJ IV PRN ×3 (15:36)
[2021-05-01] MEDS ORDERED: SODIUM CHLORIDE 0.9% 1,000 ML IV ONE (15:38)
[2021-05-01] MEDS ORDERED: SODIUM CHLORIDE 0.9% 1,000 ML with THIAMINE 100 MG, FOLIC ACID 1 MG IV ONE ×3 (16:00)
[2021-05-01] MEDS ORDERED: MULTIVITAMINS, THERA 1 EACH TAB PO ONE (16:00)
[2021-05-02] MEDS ORDERED: THIAMINE 100 MG TAB PO SCH (07:30)
[2021-05-02 08:04] VITALS: RESP 16
[2021-05-02 11:20] VITALS: BP 128/78; PULSE 78; TEMP 98.2
--- NOTE | 2021-05-02 13:48 | P.HPIM ---
History of Present Illness Patient is a pleasant 56-year-old female is admitted for all call intoxication patient was known to me from her previous hospitalization. Patient was apparently depressed yesterday as the it was a special day and reminded of her late . Her in month of November as per the patient. Patient denied any suicidal or homicidal ideations to me. Patient denied any fever chills nausea vomiting patient is alert oriented 3. During her last hospital is patient was given prescription for Celexa unsure whether patient is using these medications. Patient lab data is not consistent with the chronic alcoholism either. I do not expect any alcohol withdrawals. Patient came in with alcohol level of around 400. Her last drink was yesterday afternoon. Patient is being discharged today. Off note: I received a page after patient was discharged from the hospital that she was complaining of suicidal ideation by a hospital account liaison who takes care of her grandmother. Patient lives with her grandmother. Patient clearly declined suicidal ideations to me and to the ER physician. Patient was not petitioned either REVIEW OF SYSTEMS: CONSTITUTIONAL: No fever, no malaise, no fatigue. HEENT: No recent visual problems or hearing problems. Denied any sore throat. CARDIOVASCULAR: No chest pain, orthopnea, PND, no palpitations, no syncope. PULMONARY: No shortness of breath, no cough, no hemoptysis. GASTROINTESTINAL: No diarrhea, no nausea, no vomiting, no abdominal pain. NEUROLOGICAL: No headaches, no weakness, no numbness. HEMATOLOGICAL: Denies any bleeding or petechiae. GENITOURINARY: Denies any burning micturition, frequency, or urgency. MUSCULOSKELETAL/RHEUMATOLOGICAL: Denies any joint pain, swelling, or any muscle pain. ENDOCRINE: Denies any polyuria or polydipsia. The rest of the 14-point review of systems is negative. PHYSICAL EXAMINATION: GENERAL: The patient is alert and oriented x3, not in any acute distress. Well developed, well nourished. HEENT: Pupils are round and equally reacting to light. EOMI. No scleral icterus. No conjunctival pallor. Normocephalic, atraumatic. No pharyngeal erythema. No thyromegaly. CARDIOVASCULAR: S1 and S2 present. No murmurs, rubs, or gallops. PULMONARY: Chest is clear to auscultation, no wheezing or crackles. ABDOMEN: Soft, nontender, nondistended, normoactive bowel sounds. No palpable organomegaly. MUSCULOSKELETAL: No joint swelling or deformity. EXTREMITIES: No cyanosis, clubbing, or pedal edema. NEUROLOGICAL: Gross neurological examination did not reveal any focal deficits. SKIN: No rashes. Assessment and plan -All call abuse and all call intoxication: Patient is sober at this time patient is clinically alert oriented 3 and was discharged today. -Major depression without any suicidal ideation patient was referred to [facility] and patient was given prescription for Celexa again -Elevated MCV secondary to chronic alcohol use which she quit a few weeks ago after her discharge from hospital Mild hyponatremia secondary to high with IV fluids Patient was discharged today with follow with PCP and committed to mental health as an outpatient Past Medical History Past Medical History: Liver Disease, Pneumonia, Renal Disease, Seizure Disorder Additional Past Medical History / Comment(s): Alcohol abuse with past withdrawal/tremors/nausea, bronchitis, UTI, renal insufficiency, growth on liver-unable to biopsy d/t too close to her spine, IBS, migraines. History of Any Multi-Drug Resistant Organisms: None Reported Past Surgical History: Tonsillectomy, Tubal Ligation Past Anesthesia/Blood Transfusion Reactions: No Reported Reaction Additional Past Anesthesia/Blood Transfusion Reaction / Comment(s): patient states it takes her a long time to come out of anesthesia Past Psychological History: Depression Additional Psychological History / Comment(s): Pt resides with her spouse and her mother. She uses a walker at times. 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 Smoking Status: Never smoker Past Alcohol Use History: Heavy Additional Past Alcohol Use History / Comment(s): Pt states she drinks a pint of liqour a day Past Drug Use History: None Reported - Past Family History Mother Family Medical History: Asthma, Cancer, COPD, Diabetes Mellitus, Hyperlipidemia, Hypertension Additional Family Medical History / Comment(s): Cervical cancer. Father History Unknown: Yes Family Medical History: Unable to Obtain Additional Family Medical History / Comment(s): Pt does not know her father. Medications and Allergies Home Medications Medication Instructions Recorded Confirmed Type Multivitamins, Thera [Multivitamin 1 tab PO DAILY 02/05/20 05/01/21 History (formulary)] Citalopram Hydrobromide 10 mg PO DAILY #30 tablet 05/02/21 Rx [Citalopram HBr] Thiamine [Vitamin B-1] 100 mg PO BID-W/MEALS #30 tab 05/02/21 Rx Allergies Allergy/AdvReac Type Severity Reaction Status Date / Time amoxicillin Allergy Unknown Verified 05/01/21 13:55 bee venom protein (honey bee) Allergy Unknown Verified 05/01/21 13:55 Sulfa (Sulfonamide Allergy Unknown Verified 05/01/21 13:55 Antibiotics) Physical Exam Vitals: Vital Signs Temp Pulse Resp BP Pulse Ox 05/02/21 11:19 98.2 F 78 16 128/78 98 05/02/21 08:03 98.1 F 91 16 106/86 97 05/01/21 20:00 20 05/01/21 19:00 98.0 F 82 20 128/80 95 05/01/21 15:12 74 20 90/58 95 05/01/21 14:30 78 20 112/78 98 Intake and Output 05/01/21 05/02/21 05/02/21 22:59 06:59 14:59 Intake Total 2200 Balance 2200 Intake: Intake, IV Titration 1000 Amount Sodium Chloride 0.9% 2, 1000 000 ml @ 999 mls/hr IV . Q2H1M ONE Rx#:[id number] Oral 1200 Other: Voiding Method Bedpan # Voids 2 Weight 77.111 kg Results CBC & Chem 7: 05/01/21 13:20 05/01/21 13:20 Labs: Abnormal Lab Results - Last 24 Hours (Table) 05/01/21 05/01/21 05/01/21 Range/Units 13:20 13:20 13:20 MCV 106.8 H (80.0-100.0) fL MCH 35.3 H (25.0-35.0) pg Sodium 147 H (137-145) mmol/L Chloride 112 H (98-107) mmol/L Carbon Dioxide 21 L (22-30) mmol/L U Benzodiazepines Scrn Detected H (NotDetected) Serum Alcohol 493 H* mg/dL Thrombosis Risk Factor Assmnt - Choose All That Apply Any of the Below Risk Factors Present?: Yes Each Factor Represents 1 point: Age 41-60 years Other Risk Factors: No Other congenital or acquired thrombophilia - If yes, enter type in comment: No Thrombosis Risk Factor Assessment Total Risk Factor Score: 1 Thrombosis Risk Factor Assessment Level: Low Risk
--- NOTE | 2021-05-02 13:48 | P.DS ---
Providers Date of admission: 05/01/21 15:38 Attending physician: Ananya Chaney Consults: 05/01/21 15:38 Consult Physician Urgent Consulting Provider: Mau Carrizales Reason/Comments: Suicidal ideations Do you want consulting provider notified?: Yes Primary care physician: Stated None Hospital Course: Please refer to my history of present illness for further details Patient Condition at Discharge: Good Plan - Discharge Summary New Discharge Prescriptions: Continue Citalopram Hydrobromide [Citalopram HBr] 10 mg PO DAILY #30 tablet Thiamine [Vitamin B-1] 100 mg PO BID-W/MEALS #30 tab No Action Multivitamins, Thera [Multivitamin (formulary)] 1 tab PO DAILY Discharge Medication List Multivitamins, Thera [Multivitamin (formulary)] 1 tab PO DAILY 02/05/20 [History] Citalopram Hydrobromide [Citalopram HBr] 10 mg PO DAILY #30 tablet 05/02/21 [Rx] Thiamine [Vitamin B-1] 100 mg PO BID-W/MEALS #30 tab 05/02/21 [Rx] Follow up Appointment(s)/Referral(s): Cathy Esparza MD [REFERRING] - 1 Week [facility] [NON-STAFF] - 1 Week Discharge Disposition: HOME SELF-CARE
== END 2021-05-02 11:19 | disposition home or self-care (01) | DRG 897 ==
LOC: EC 12:45 → 5NMEDONC 15:38
PROVIDERS: ADMIT Internal Medicine; ATTEND Internal Medicine
DX: F10.129 Alcohol abuse with intoxication, unspecified (principal); E87.1 Hypo-osmolality and hyponatremia; R45.851 Suicidal ideations; F32.9 Major depressive disorder, single episode, unspecified; G40.909 Epilepsy, unspecified, not intractable, without status epilepticus; Z20.822 Contact with and (suspected) exposure to COVID-19; K76.9 Liver disease, unspecified; Z82.49 Family history of ischemic heart disease and other diseases of the circulatory system; Z82.5 Family history of asthma and other chronic lower respiratory diseases; Z83.3 Family history of diabetes mellitus; Z80.49 Family history of malignant neoplasm of other genital organs; Y90.8 Blood alcohol level of 240 mg/100 ml or more
CPT/HCPCS: 36415; 80053; 80306; 80320; 82075; 83735; 85025; 87635; 99285

== ENCOUNTER 2021-05-22 14:42 | Emergency (ER) | payer OTHER ==
[2021-05-22 15:09] VITALS: RESP 20
[2021-05-22 15:54] LABS: Basophils % (A) 1 %; Eosinophils # (A) 0.1 k/uL (0-0.7); Eosinophils % (A) 1 %; HCT 44.1 % (34.0-46.0); HGB 14.6 gm/dL (11.4-16.0); Lymphocytes # (A) 2.4 k/uL (1.0-4.8); Lymphocytes % (A) 38 %; MCH 35.1 pg (25.0-35.0); MCHC 33.1 g/dL (31.0-37.0); MCV 105.9 fL (80.0-100.0); Macrocytosis Moderate; Mean Platelet Volume 7.3; Monocytes # (A) 0.2 k/uL (0-1.0); Monocytes % (A) 4 %; Neutrophils # (A) 3.4 k/uL (1.3-7.7); Neutrophils % (A) 54 %; Platelet Count 255 k/uL (150-450); RBC 4.17 m/uL (3.80-5.40); RDW 13.8 % (11.5-15.5); WBC 6.4 k/uL (3.8-10.6)
[2021-05-22 16:03] LABS: Appearance,Urine Cloudy (Clear); Bacteria,Urine Rare /hpf; Bilirubin,Urine Negative (Negative); Blood,Urine Negative (Negative); Color,Urine Colorless; Glucose,Urine (UA) Negative (Negative); Ketones,Urine Negative (Negative); Leukocyte Esterase,Urine Negative (Negative); Nitrite,Urine Negative (Negative); Protein,Urine Negative (Negative); RBC,Urine 1 /hpf (0-5); Specific Gravity,Urine 1.004 (1.001-1.035); Squamous Epithelial Cell,Urine 3 /hpf (0-4); Urobilinogen,Urine <2.0 mg/dL (<2.0); WBC,Urine 2 /hpf (0-5)
[2021-05-22 16:11] LABS: Amphetamine Screen,Urine Not Detected (NotDetected); Barbiturate Screen,Urine Not Detected (NotDetected); Benzodiazepines Screen,Urine Detected (NotDetected); Cocaine Screen,Urine Not Detected (NotDetected); Methadone Screen, Urine Not Detected (NotDetected); Opiate Screen,Urine Not Detected (NotDetected); Oxycodone Screen, Urine Not Detected (NotDetected); Phencyclidine Screen,Urine Not Detected (NotDetected); Tricyclic Antidepressant,Urine Not Detected (NotDetected); Urn Cannabinoid Scrn Not Detected (NotDetected)
[2021-05-22 16:22] LABS: ALT 21 U/L (4-34); AST 38 U/L (14-36); African American GFR (CKD) >90 (>60 ml/min/1.73 sqM); Albumin 4.8 g/dL (3.5-5.0); Alkaline Phosphatase 105 U/L (38-126); Anion Gap 13 mmol/L; Blood Urea Nitrogen 14 mg/dL (7-17); Calcium 9.1 mg/dL (8.4-10.2); Carbon Dioxide 24 mmol/L (22-30); Chloride 110 mmol/L (98-107); Glucose 67 mg/dL (74-99); Non-African American GFR(CKD) >90 (>60 ml/min/1.73 sqM); Sodium 147 mmol/L (137-145); Total Bilirubin 0.5 mg/dL (0.2-1.3)
--- NOTE | 2021-05-22 16:29 | XR ---
EXAMINATION TYPE: XR chest 2V DATE OF EXAM: 05/22/2021 COMPARISON: Chest x-ray 02/21/2021 HISTORY: Left-sided chest pain TECHNIQUE: Frontal and lateral views of the chest are obtained. FINDINGS: There is no focal air space opacity, pleural effusion, or pneumothorax seen. The cardiac silhouette size is within normal limits. The osseous structures are stable, there is thoracic spond ylosis, correlate clavicular joint arthropathy within the shoulders. IMPRESSION: No acute cardiopulmonary process.
[2021-05-22 16:36] LABS: Alcohol 395 mg/dL
[2021-05-22] MEDS ORDERED: THIAMINE 100 MG TAB PO SCH (17:30)
[2021-05-22 17:48] LABS: Glucose,Whole Blood 155 mg/dL (75-99)
[2021-05-22] MEDS ORDERED: SODIUM CHLORIDE 0.9% 1,000 ML IV ONE (17:49)
[2021-05-22] MEDS ORDERED: SODIUM CHLORIDE 0.9% 1,000 ML with MVI, ADULT NO.4 WITH VIT K 10 ML, THIAMINE 100 MG, F... IV ONE ×4 (17:49)
--- NOTE | 2021-05-22 17:50 | ED ---
General Adult HPI - General Chief complaint: Alcohol Stated complaint: ETOH Time Seen by Provider: 05/22/21 15:16 Source: EMS Mode of arrival: EMS Limitations: no limitations - History of Present Illness Initial comments: 56 year-old female patient brought to the ED after being found lying on the side of the road. She was found to be intoxicated. Patient states she feels well and wants to go home. She does admit to drinking alcohol. She is unsure how she ended up on the side of the road. Denies any injuries. She states she does have some mild left chest pain. States she vomits on a daily basis. She is a heavy drinker. She denies constipation or diarrhea. Denies hematochezia or melena. Denies hematemesis. Patient denies any recent rash, fever, chills, cough, shortness of breath, abdominal pain, back pain, numbness, tingling, dizziness, weakness, hematuria, dysuria, urinary urgency, urinary frequency, headache, visual changes, or any other complaints. - Related Data Home Medications Medication Instructions Recorded Confirmed Multivitamins, Thera [Multivitamin 1 tab PO DAILY 02/05/20 05/22/21 (formulary)] Previous Rx's Medication Instructions Recorded Citalopram Hydrobromide 10 mg PO DAILY #30 tablet 05/02/21 [Citalopram HBr] Thiamine [Vitamin B-1] 100 mg PO BID-W/MEALS #30 tab 05/02/21 Allergies Allergy/AdvReac Type Severity Reaction Status Date / Time amoxicillin Allergy Unknown Verified 05/22/21 16:12 bee venom protein (honey bee) Allergy Unknown Verified 05/22/21 16:12 Sulfa (Sulfonamide Allergy Unknown Verified 05/22/21 16:12 Antibiotics) Review of Systems ROS Statement: Those systems with pertinent positive or pertinent negative responses have been documented in the HPI. ROS Other: All systems not noted in ROS Statement are negative. Past Medical History Past Medical History: Liver Disease, Pneumonia, Renal Disease, Seizure Disorder Additional Past Medical History / Comment(s): Alcohol abuse with past withdrawal/tremors/nausea, bronchitis, UTI, renal insufficiency, growth on liver-unable to biopsy d/t too close to her spine, IBS, migraines. History of Any Multi-Drug Resistant Organisms: None Reported Past Surgical History: Tonsillectomy, Tubal Ligation Past Anesthesia/Blood Transfusion Reactions: No Reported Reaction Additional Past Anesthesia/Blood Transfusion Reaction / Comment(s): patient states it takes her a long time to come out of anesthesia Past Psychological History: Depression Smoking Status: Never smoker Past Alcohol Use History: Heavy Past Drug Use History: None Reported - Past Family History Mother Family Medical History: Asthma, Cancer, COPD, Diabetes Mellitus, Hyperlipidemia, Hypertension Additional Family Medical History / Comment(s): Cervical cancer. Father History Unknown: Yes Family Medical History: Unable to Obtain Additional Family Medical History / Comment(s): Pt does not know her father. General Exam Limitations: no limitations General appearance: alert, in no apparent distress, other (This is a well- developed, well-nourished adult female patient who appears intoxicated.) Eye exam: Present: normal appearance, PERRL, EOMI. Absent: scleral icterus, conjunctival injection, periorbital swelling ENT exam: Present: normal exam, normal oropharynx, mucous membranes moist Respiratory exam: Present: normal lung sounds bilaterally. Absent: respiratory distress, wheezes, rales, rhonchi, stridor Cardiovascular Exam: Present: regular rate, normal rhythm, normal heart sounds. Absent: systolic murmur, diastolic murmur, rubs, gallop, clicks GI/Abdominal exam: Present: soft, tenderness (Mid epigastric, left upper quadrant), normal bowel sounds. Absent: distended, guarding, rebound, rigid Neurological exam: Present: alert, oriented X3, CN II-XII intact Psychiatric exam: Present: normal affect, normal mood Skin exam: Present: warm, dry, intact, normal color. Absent: rash Course Vital Signs 05/22/21 05/22/21 15:06 18:50 Temperature 98.7 F 98.0 F Pulse Rate 68 81 Respiratory 20 20 Rate Blood Pressure 125/84 98/58 O2 Sat by Pulse 97 99 Oximetry - Reevaluation(s) Reevaluation #1: 05/22/21 19:02 Attempted to admit patient. Dr. Silva reluctant to accept admission due to c ensus. Arrangements were made with ER disease case manager rn to have cab take patient to her mother's house. Patient is ambulatory, alert, and acting appropriately. Called her mother who is willing to accept patient at her home and take responsibility for her. Patient is agreeable with this plan. 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 Medical Decision Making - Medical Decision Making 56 year-old female patient presents to ED after being found intoxicated on the side of the road. She did admit to some chest pain, daily vomiting, alcohol abuse. Labs reviewed and showed elevated lipase around 500. Alcohol level 395. Trop negative. EKG unremarkable. An was for admission however we were able to arrange a ride for the patient, she will be transported to her mother's home. I spoke to her mother Lenore who accepts responsibility for the patient. Case discussed with my attending Dr. Childers. - Lab Data Result diagrams: 05/22/21 15:35 05/22/21 15:35 Lab Results 05/22/21 05/22/21 05/22/21 Range/Units 15:35 15:35 15:35 WBC 6.4 (3.8-10.6) k/uL RBC 4.17 (3.80-5.40) m/uL Hgb 14.6 (11.4-16.0) gm/dL Hct 44.1 (34.0-46.0) % MCV 105.9 H (80.0-100.0) fL MCH 35.1 H (25.0-35.0) pg MCHC 33.1 (31.0-37.0) g/dL RDW 13.8 (11.5-15.5) % Plt Count 255 (150-450) k/uL MPV 7.3 Neutrophils % 54 % Lymphocytes % 38 % Monocytes % 4 % Eosinophils % 1 % Basophils % 1 % Neutrophils # 3.4 (1.3-7.7) k/uL Lymphocytes # 2.4 (1.0-4.8) k/uL Monocytes # 0.2 (0-1.0) k/uL Eosinophils # 0.1 (0-0.7) k/uL Basophils # 0.0 (0-0.2) k/uL Macrocytosis Moderate Sodium 147 H (137-145) mmol/L Potassium 4.0 (3.5-5.1) mmol/L Chloride 110 H (98-107) mmol/L Carbon Dioxide 24 (22-30) mmol/L Anion Gap 13 mmol/L BUN 14 (7-17) mg/dL Creatinine 0.73 (0.52-1.04) mg/dL Est GFR (CKD-EPI)AfAm >90 (>60 ml/min/1.73 sqM) Est GFR (CKD-EPI)NonAf >90 (>60 ml/min/1.73 sqM) Glucose 67 L (74-99) mg/dL POC Glucose (mg/dL) (75-99) mg/dL POC Glu Architectural Design Professor ID Calcium 9.1 (8.4-10.2) mg/dL Total Bilirubin 0.5 (0.2-1.3) mg/dL AST 38 H (14-36) U/L ALT 21 (4-34) U/L Alkaline Phosphatase 105 (38-126) U/L Troponin I (0.000-0.034) ng/mL Total Protein 8.0 (6.3-8.2) g/dL Albumin 4.8 (3.5-5.0) g/dL Lipase (23-300) U/L Urine Color Colorless Urine Appearance Cloudy H (Clear) Urine pH 5.0 (5.0-8.0) Ur Specific Novi 1.004 (1.001-1.035) Urine Protein Negative (Negative) Urine Glucose (UA) Negative (Negative) Urine Ketones Negative (Negative) Urine Blood Negative (Negative) Urine Nitrite Negative (Negative) Urine Bilirubin Negative (Negative) Urine Urobilinogen <2.0 (<2.0) mg/dL Ur Leukocyte Esterase Negative (Negative) Urine RBC 1 (0-5) /hpf Urine WBC 2 (0-5) /hpf Ur Squamous Epith Cells 3 (0-4) /hpf Urine Bacteria Rare H (None) /hpf Urine Opiates Screen Not Detected (NotDetected) Ur Oxycodone Screen Not Detected (NotDetected) Urine Methadone Screen Not Detected (NotDetected) Ur Propoxyphene Screen Not Detected (NotDetected) Ur Barbiturates Screen Not Detected (NotDetected) U Tricyclic Antidepress Not Detected (NotDetected) Ur Phencyclidine Scrn Not Detected (NotDetected) Ur Amphetamines Screen Not Detected (NotDetected) U Methamphetamines Scrn Not Detected (NotDetected) U Benzodiazepines Scrn Detected H (NotDetected) Urine Cocaine Screen Not Detected (NotDetected) U Marijuana (THC) Screen Not Detected (NotDetected) Serum Alcohol 395 H* mg/dL 05/22/21 05/22/21 05/22/21 Range/Units 15:35 15:35 17:46 WBC (3.8-10.6) k/uL RBC (3.80-5.40) m/uL Hgb (11.4-16.0) gm/dL Hct (34.0-46.0) % MCV (80.0-100.0) fL MCH (25.0-35.0) pg MCHC (31.0-37.0) g/dL RDW (11.5-15.5) % Plt Count (150-450) k/uL MPV Neutrophils % % Lymphocytes % % Monocytes % % Eosinophils % % Basophils % % Neutrophils # (1.3-7.7) k/uL Lymphocytes # (1.0-4.8) k/uL Monocytes # (0-1.0) k/uL Eosinophils # (0-0.7) k/uL Basophils # (0-0.2) k/uL Macrocytosis Sodium (137-145) mmol/L Potassium (3.5-5.1) mmol/L Chloride (98-107) mmol/L Carbon Dioxide (22-30) mmol/L Anion Gap mmol/L BUN (7-17) mg/dL Creatinine (0.52-1.04) mg/dL Est GFR (CKD-EPI)AfAm (>60 ml/min/1.73 sqM) Est GFR (CKD-EPI)NonAf (>60 ml/min/1.73 sqM) Glucose (74-99) mg/dL POC Glucose (mg/dL) 155 H (75-99) mg/dL POC Glu Architectural Design Professor ID Shoaib, Rupali Calcium (8.4-10.2) mg/dL Total Bilirubin (0.2-1.3) mg/dL AST (14-36) U/L ALT (4-34) U/L Alkaline Phosphatase (38-126) U/L Troponin I <0.012 (0.000-0.034) ng/mL Total Protein (6.3-8.2) g/dL Albumin (3.5-5.0) g/dL Lipase 515 H (23-300) U/L Urine Color Urine Appearance (Clear) Urine pH (5.0-8.0) Ur Specific Novi (1.001-1.035) Urine Protein (Negative) Urine Glucose (UA) (Negative) Urine Ketones (Negative) Urine Blood (Negative) Urine Nitrite (Negative) Urine Bilirubin (Negative) Urine Urobilinogen (<2.0) mg/dL Ur Leukocyte Esterase (Negative) Urine RBC (0-5) /hpf Urine WBC (0-5) /hpf Ur Squamous Epith Cells (0-4) /hpf Urine Bacteria (None) /hpf Urine Opiates Screen (NotDetected) Ur Oxycodone Screen (NotDetected) Urine Methadone Screen (NotDetected) Ur Propoxyphene Screen (NotDetected) Ur Barbiturates Screen (NotDetected) U Tricyclic Antidepress (NotDetected) Ur Phencyclidine Scrn (NotDetected) Ur Amphetamines Screen (NotDetected) U Methamphetamines Scrn (NotDetected) U Benzodiazepines Scrn (NotDetected) Urine Cocaine Screen (NotDetected) U Marijuana (THC) Screen (NotDetected) Serum Alcohol mg/dL - EKG Data -: EKG Interpreted by Md EKG Comments: EKG obtained at 1645 shows normal sinus rhythm with a ventricular rate of 60, MT interval 208, QRS duration 78, QT 446, QTc 446. No evidence of ST elevation or depression. - Radiology Data Radiology results: report reviewed, image reviewed Review of the chest is obtained. Report was reviewed in its entirety. Impression by Dr. Botello shows no acute cardiopulmonary process. Disposition Clinical Impression: Alcohol intoxication Disposition: HOME SELF-CARE Condition: Good Instructions (If sedation given, give patient instructions): Alcohol Intoxication (ED) Is patient prescribed a controlled substance at d/c from ED?: No Referrals: None,Stated [Primary Care Provider] - 1-2 days Time of Disposition: 18:46 Decision to Admit Reason: Admit from EC Decision Date: 05/22/21 Decision Time: 17:56
[2021-05-22] MEDS ORDERED: NALOXONE 0.4 MG/ML 1 ML VIAL IV PRN (17:53)
[2021-05-22] MEDS ORDERED: LORazepam 2 MG/ML INJ IV PRN ×3 (17:55)
[2021-05-22 19:20] VITALS: BP 98/58; PULSE 81; TEMP 98
== END 2021-05-22 19:10 | disposition home or self-care (01) ==
LOC: EC 14:42
DX: R07.89 Other chest pain (principal); F10.129 Alcohol abuse with intoxication, unspecified; Z88.0 Allergy status to penicillin; Z88.2 Allergy status to sulfonamides; Z91.018 Allergy to other foods
CPT/HCPCS: 36415; 93005; 80053; 83690; 84484; 85025; 81001; 80306; 71046; 99285; G0480; 80320